=== PATIENT | female | born 1975 | race Caucasian/White ===

== ENCOUNTER 2016-03-25 16:54 | Emergency (ER) | payer MEDICARE, MEDICAID ==
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
--- NOTE | 2016-03-28 10:44 | RADIOLOGY REPORT ---
Four views of the right foot demonstrate no displaced fracture, dislocation or bony destructive change. Dorsal soft tissue swelling is seen. The visualized joints appear unremarkable. IMPRESSION: Soft tissue swelling. No displaced injury is identified. If clinically indicated, further evaluation and/or follow-up may be of benefit. [facility]
== END 2016-03-25 17:30 | disposition home or self-care (01) ==
LOC: ER 16:54
DX: S93.601A Unspecified sprain of right foot, initial encounter (principal); W01.0XXA Fall on same level from slipping, tripping and stumbling without subsequent striking against object, initial encounter; Y92.012 Bathroom of single-family (private) house as the place of occurrence of the external cause; Y93.E1 Activity, personal bathing and showering; G90.521 Complex regional pain syndrome I of right lower limb; G89.4 Chronic pain syndrome; S34.3XXS Injury of cauda equina, sequela; Z89.512 Acquired absence of left leg below knee; Z86.718 Personal history of other venous thrombosis and embolism; F17.210 Nicotine dependence, cigarettes, uncomplicated; Z79.899 Other long term (current) drug therapy
CPT/HCPCS: 73630; 99283

== ENCOUNTER 2016-03-30 17:01 | Emergency (ER) | payer MEDICARE, MEDICAID ==
[2016-03-30] MEDS ORDERED: HYDROmorphone HCL 1 MG/ML SYR ONE (17:48)
[2016-03-30] MEDS ORDERED: ONDANSETRON ODT 8 MG TAB.RAPDIS PO ONE (17:48)
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
== END 2016-03-30 18:20 | disposition home or self-care (01) ==
LOC: ER 17:01
DX: G90.521 Complex regional pain syndrome I of right lower limb (principal); G89.4 Chronic pain syndrome; S34.3XXS Injury of cauda equina, sequela; Z89.512 Acquired absence of left leg below knee; Z86.718 Personal history of other venous thrombosis and embolism; F17.210 Nicotine dependence, cigarettes, uncomplicated; F41.9 Anxiety disorder, unspecified; Z79.899 Other long term (current) drug therapy
CPT/HCPCS: 96372; 99282; 99283; J1170

== ENCOUNTER 2016-04-01 20:08 | Emergency (ER) | payer MEDICARE, MEDICAID ==
[2016-04-01] MEDS ORDERED: HYDROmorphone HCL 1 MG/ML SYR ONE ×2 (20:32→20:33)
[2016-04-01] MEDS ORDERED: HYDROcodone/APAP PREPAC 5/325 1 TAB TABLET PO ONE (20:46)
--- NOTE | 2016-04-01 20:55 | ER NURSING DOCUMENTATION ---
Nurse's Notes [facility] Name:Amy Min Age:41 yrs Sex:Female :1975 Arrival Date:04/01/2016 Time:20:08 Bed3 Private MD:Christine Manley Diagnosis:Reflex Sympathetic Dystrophy, Unspecified Presentation: 04/01 20:14 Presenting complaint: Patient states: Pt states she has nerve pain from BKA right leg ma Pain sever over past e days. Transition of care: Home. 20:14 Acuity: ABIGAIL 3 ma 20:14 Method Of Arrival: Private Vehicle ma Historical: - Allergies: SULFA (SULFONAMIDES); extended release analgesics; KETAMINE; Oxycodone HCl; Carbamazepine; Positive latex allergy; Denies latex allergy; Aspirin; Codeine; Demerol; Ibuprofen; IODINEIODINE CONTAINING; Keflex; SULFA (SULFONAMIDES); - Home Meds: 1. Lyrica Oral 2. gabapentin oral 3 times per day 3. Ibuprofen Oral 4. Ibuprofen Oral - PMHx: Peripheral Neuropathy - / Pain (January 01, 2016); Left BKA leg amputation; Peripheral Neuropathy - / Pain (January 01, 2016); Left BKA leg amputation; Reflex Sympathetic Dystrophy, Unspecified (March 30, 2016); - PSHx: CHOLECYSECTOMY; EAR TUBES; - Tetanus: unknown. - Ebola Screening: : No symptoms or risks identified at this time. . - Immunization history: Unable to Obtain. - Social history: Smoking status: Patient uses tobacco products and is smoker, current status unknown. ED Course: 20:09 Patient arrived in ED. em2 20:09 Christine Manley is Private Physician. em2 20:14 Carmen Arteaga, SUSAN is Primary Nurse. ma 20:16 Triage completed. ma 20:36 Kody Saldaña MD is Attending Physician. tl1 20:36 Christine Manley is Referral Physician. tl1 Administered Medications: 20:30 Drug: Dilaudid 2 mg; Route: IM; Site: left gluteus; ma 20:37 Follow up: Response: Pain is decreased ma 20:54 Drug: HYDROcodone-acetaminophen (5mg/325 mg) 1-2 tabs 1 tabs; Route: PO; ma 20:54 Follow up: Response: Pharmacy closed - take home med pack ma Outcome: 20:43 Discharge ordered by . tl1 20:54 Patient left the ED. ma Signatures: Carmen Arteaga, RN RN yogi Siddiqi-omayra, Carlos em2 Kody Saldaña MD MD tl1
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
== END 2016-04-01 20:55 | disposition home or self-care (01) ==
LOC: ER 20:08
DX: G90.521 Complex regional pain syndrome I of right lower limb (principal); G89.4 Chronic pain syndrome; S34.3XXS Injury of cauda equina, sequela; Z89.512 Acquired absence of left leg below knee; Z86.718 Personal history of other venous thrombosis and embolism; F17.210 Nicotine dependence, cigarettes, uncomplicated; Z79.899 Other long term (current) drug therapy
CPT/HCPCS: 96372; 99282; J1170

== ENCOUNTER 2016-04-06 18:06 | Emergency (ER) | payer MEDICARE, MEDICAID ==
[2016-04-06] MEDS ORDERED: FENTANYL 250 MCG/5 ML VIAL ONE (18:24)
[2016-04-06] MEDS ORDERED: HYDROmorphone HCL 1 MG/ML SYR ONE (18:27)
--- NOTE | 2016-04-06 19:35 | ER PHYSICIAN DOCUMENTATION ---
Physician Documentation [facility] Name:Amy Min Age:41 yrs Sex:Female :1975 Arrival Date:04/06/2016 Time:18:06 Bed6 Private MD:[facility] ED PhysicianJan Conteh Disposition: 04/06/16 18:54 Discharged to Home/Self Care. Impression: Shoulder Contusion, Ankle Contusion. - Condition is Fair. - Discharge Instructions: CONTUSION, Lower Extremity, SHOULDER CONTUSION. - Prescriptions for Hydrocodone- Acetaminophen 5-325 mg Oral Tablet - take 1 tablet by ORAL route every 6 hours As needed; 20 tablet. - Medical Reconciliation form form. - Follow up: Private Physician; When: 7 - 10 days; Reason: Recheck today's complaints, Continuance of care. - Problem is new. - Symptoms have improved. - Notes: Use your boot and shoulder immobilizer for 3 - 4 days, then use passive range of motion exercises to stay limber. Take Ibuprofen 600mg by mouth every 6 hours with food for 3 days. Take Vicodin 1 tab by mouth every 6 hours as needed for severe pain Ice packs for 2 - 3 days. HPI: 04/06 18:15 This 41 yrs old Female presents to ER via EMS with complaints of Fall Injury. cd 18:15 Details of fall: The patient fell from seated position, out of a wheelchair, reports cd she was going too fast, fell out and hit her left shoulder and right ankle. No severe head, neck, chest, back or pelvis injuries. Onset: The symptom(s)/episode began/occurred acutely, just prior to arrival. Associated injuries: The patient sustained anterior aspect of left shoulder, contusion, right ankle, contusion. Associated signs and symptoms: The patient has no apparent associated signs or symptoms, Loss of consciousness: the patient experienced no loss of consciousness. Severity of symptoms: At their worst the symptoms were moderate, in the emergency department the symptoms are unchanged. Historical: - Allergies: SULFA (SULFONAMIDES); KETAMINE; Oxycodone HCl; Carbamazepine; Aspirin; Codeine; Demerol; Ibuprofen; extended release analgesics; IODINEIODINE CONTAINING; SULFA (SULFONAMIDES); Keflex; - Home Meds: 1. Lyrica Oral 2. gabapentin oral 3 times per day 3. Ibuprofen Oral - PMHx: Peripheral Neuropathy - / Pain (January 01, 2016); Reflex Sympathetic Dystrophy, Unspecified (April 01, 2016); Peripheral Neuropathy - / Pain (January 01, 2016); - PSHx: EAR TUBES; CHOLECYSECTOMY; BKA; - Tetanus: < 10 years. - Ebola Screening: : Patient denies exposure to infectious person. Patient denies travel to an Ebola-affected area in the 21 days before illness onset. . - Immunization history: Flu Vaccine unknown. - Social history: Smoking status: Patient states former smoker of tobacco. ROS: 18:15 Neck: Negative for injury, pain, stiffness and swelling. cd Cardiovascular: Negative for chest pain, palpitations, edema and pleuritic pain. Respiratory: Negative for shortness of breath, dyspnea on exertion, cough, sputum production, wheezing, hemoptysis and pleuritic chest pain. Abdomen/GI: Negative for abdominal pain, nausea, vomiting, diarrhea, constipation, distension, melena, hematochezia and hematemesis. 18:15 Back: Negative for injury, pain or muscle spasms. cd 18:15 Constitutional: Negative for poor PO intake. 18:15 MS/extremity: Positive for contusion, decreased range of motion, pain, of the right ankle and anterior aspect of left shoulder, Negative for deformity, paresthesias, tingling. 18:15 Neuro: Negative for acute changes. 18:15 All other systems are negative. Exam: Head/Face: Normocephalic, atraumatic. Neck: Trachea midline, no thyromegaly or masses palpated, and no cervical lymphadenopathy. Supple, full range of motion without nuchal rigidity, or vertebral point tenderness. No Meningismus. Chest/axilla: Normal chest wall appearance and motion. Nontender with no deformity. No lesions are appreciated. Cardiovascular: Regular rate and rhythm with a normal S1 and S2. No gallops, murmurs, or rubs. Normal PMI, no JVD. No pulse deficits. Respiratory: Lungs have equal breath sounds bilaterally, clear to auscultation and percussion. No rales, rhonchi or wheezes noted. No increased work of breathing, no retractions or nasal flaring. Abdomen/GI: Soft, non-tender, with normal bowel sounds. No distension or tympany. No guarding or rebound. No evidence of tenderness throughout. Back: No spinal tenderness. No costovertebral tenderness. Full range of motion. 18:15 Skin: Warm, dry with normal turgor. Normal color with no rashes, no lesions, and no cd evidence of cellulitis. 18:15 Constitutional: The patient appears alert, awake, non-diaphoretic, well developed, well nourished, anxious, obese, in obvious distress, moderately distressed. 18:15 Musculoskeletal/extremity: Extremities: grossly normal except: noted in the anterior aspect of left shoulder: contusion, decreased ROM, pain, noted in the right ankle: contusion, pain, Circulation is intact in all extremities. 18:15 Neuro: Orientation: is normal, to person, place & time. Mentation: is normal, Memory: is normal, Cranial nerves: CN II- XII are normal as tested, Motor: is normal, Sensation: is normal. Vital Signs: 18:18 BP 168 / 142; Pulse 93; Resp 22; Temp 97.8; Pulse Ox 93% on R/A; Pain 10/10; st 19:04 BP 115 / 77; Pulse 82; Resp 15; Pulse Ox 91% on R/A; Pain 6/10; lb 19:34 BP 122 / 77; Pulse 82; Resp 15; Pulse Ox 90% on R/A; Pain 5/10; lb [place] Coma Score: 18:15 Eye Response: spontaneous(4). Verbal Response: oriented(5). Motor Response: obeys cd commands(6). Total: 15. MDM: 18:14 Patient medically screened. cd 18:15 Differential diagnosis: contusion, fracture. cd 18:48 Test interpretation: by ED physician or midlevel provider: plain radiologic studies, cd Shoulder neg for fx and right ankle X-rays negative for fracture. 18:50 Data reviewed: vital signs, nurses notes, old medical records, radiologic studies, and cd as a result, I will discharge patient, prescribe pain medication, Dilaudid. Data interpreted: Pulse oximetry: on room air is 90 %. Interpretation: normal. Counseling: I had a detailed discussion with the patient and/or guardian regarding: the historical points, exam findings, and any diagnostic results supporting the discharge/admit diagnosis, radiology results, the need for outpatient follow up, for a recheck, with the patient's primary care provider, to return to the emergency department if symptoms worsen or persist or if there are any questions or concerns that arise at home. Response to treatment: the patient's symptoms have markedly improved after treatment, the patient's condition has returned to base line, and as a result, I will discharge patient. 04/06 18:14 Order name: Ice Packs; Complete Time: 18:14 st 04/06 18:53 Order name: ORTHO: Arm Sling; Complete Time: 19:03 cd 04/06 18:53 Order name: Walking Boot; Complete Time: 19:35 cd Dispensed Medications: 18:22 Drug: Dilaudid 3 mg; Route: IM; Site: left gluteus; tg 19:03 Follow up: Response: Pain is decreased lb Signatures: Topher Cárdenas RN RN tg Rosa Moore RN RN st Daley, Chris, MD MD cd Bollock, Lynda lb
--- NOTE | 2016-04-06 19:35 | ER NURSING DOCUMENTATION ---
Nurse's Notes [facility] Name:Amy Min Age:41 yrs Sex:Female :1975 Arrival Date:04/06/2016 Time:18:06 Bed6 Private MD:Kevin, [facility] Diagnosis:Shoulder Contusion;Ankle Contusion Presentation: 04/06 18:12 Presenting complaint: Patient states: Fell from wheelchair, pain in left shoulder. tg Transition of care: patient was not received from another setting of care. Care prior to arrival: Splinting by EMS, 100mcg intranasal fentanyl. No IV attempt due to known hard stick. Mechanism of Injury: Fall out of chair. 18:12 Acuity: ABIGAIL 3 tg 18:12 Method Of Arrival: EMS: 410 tg Triage Assessment: 18:15 General: Appears uncomfortable, Behavior is cooperative, crying. Pain: Complains of st pain in posterior aspect of left shoulder and right ankle Pain currently is 10 out of 10 on a pain scale. Pain began post fall. Cardiovascular: No deficits noted. Respiratory: No deficits noted. GI: No deficits noted. Musculoskeletal: Circulation, motion, and sensation intact Tenderness present in posterior aspect of left shoulder and right ankle. Historical: - Allergies: SULFA (SULFONAMIDES); KETAMINE; Oxycodone HCl; Carbamazepine; Aspirin; Codeine; Demerol; Ibuprofen; extended release analgesics; IODINEIODINE CONTAINING; SULFA (SULFONAMIDES); Keflex; - Home Meds: 1. Lyrica Oral 2. gabapentin oral 3 times per day 3. Ibuprofen Oral - PMHx: Peripheral Neuropathy - / Pain (January 01, 2016); Reflex Sympathetic Dystrophy, Unspecified (April 01, 2016); Peripheral Neuropathy - / Pain (January 01, 2016); - PSHx: EAR TUBES; CHOLECYSECTOMY; BKA; - Tetanus: < 10 years. - Ebola Screening: : Patient denies exposure to infectious person. Patient denies travel to an Ebola-affected area in the 21 days before illness onset. . - Immunization history: Flu Vaccine unknown. - Social history: Smoking status: Patient states former smoker of tobacco. Screenin:19 Abuse screen: pt feels safe at home. Nutritional screening: No deficits noted. st Vital Signs: 18:18 BP 168 / 142; Pulse 93; Resp 22; Temp 97.8; Pulse Ox 93% on R/A; Pain 10/10; st 19:04 BP 115 / 77; Pulse 82; Resp 15; Pulse Ox 91% on R/A; Pain 6/10; lb 19:34 BP 122 / 77; Pulse 82; Resp 15; Pulse Ox 90% on R/A; Pain 5/10; lb [place] Coma Score: 18:15 Eye Response: spontaneous(4). Verbal Response: oriented(5). Motor Response: obeys cd commands(6). Total: 15. ED Course: 18:07 Patient arrived in ED. ama 18:07 [facility] is Private Physician. ama 18:07 [facility] is Private Physician. ama 18:11 Topher Cárdenas RN is Primary Nurse. tg 18:13 Triage completed. tg 18:14 Jan Conteh MD is Attending Physician. cd 18:19 Valuables Remains with patient Bed in low position. Side rails up X2. Ice pack to st injury. 18:23 Arm band placed on Bed in low position Call Light in Reach HOB Elevated Side rails up tg x2. 18:23 Affected limb iced. tg 18:45 Port Xray Completed. pm1 18:47 Report given to SUSAN Burgess. tg 19:33 Shoulder immobilizer applied on left shoulder, Ortho shoe/post op shoe applied to right lb foot. Administered Medications: 18:22 Drug: Dilaudid 3 mg; Route: IM; Site: left gluteus; tg 19:03 Follow up: Response: Pain is decreased lb Outcome: 18:54 Discharge ordered by MD. cd 19:34 Discharged to home via wheelchair. lb 19:34 Condition: stable 19:34 Discharge Assessment: Patient awake, alert and oriented x 3. No cognitive and/or functional deficits noted. Patient verbalized understanding of disposition instructions. 19:34 Instructed on discharge instructions, follow up and referral plans. no drinking with medication, Ortho Care 19:34 Patient left the ED. lb Signatures: Topher Cárdenas RN RN tg Twombly, Summer, RN RN st Daley, Chris, MD MD cd Gautam Sutton pm1 Thony Romano, Reg Reg Jenifer Boles lb
== END 2016-04-06 19:35 | disposition home or self-care (01) ==
LOC: ER 18:06
DX: S40.012A Contusion of left shoulder, initial encounter (principal); S90.01XA Contusion of right ankle, initial encounter; V00.811A Fall from moving wheelchair (powered), initial encounter; Y92.010 Kitchen of single-family (private) house as the place of occurrence of the external cause; G90.521 Complex regional pain syndrome I of right lower limb; G89.4 Chronic pain syndrome; S34.3XXS Injury of cauda equina, sequela; Z89.512 Acquired absence of left leg below knee; Z86.718 Personal history of other venous thrombosis and embolism; F17.210 Nicotine dependence, cigarettes, uncomplicated; Z79.899 Other long term (current) drug therapy; Z74.3 Need for continuous supervision
CPT/HCPCS: 96372; 99283; 99284; A0425; A0427; J1170

== ENCOUNTER 2016-04-30 18:36 | Emergency (ER) | payer MEDICARE, MEDICAID ==
[2016-04-30] MEDS ORDERED: KETOROLAC TROMETHAMINE 60 MG/2 ML VIAL ONE (19:31)
[2016-04-30] MEDS ORDERED: HYDROmorphone HCL 1 MG/ML SYR ONE (19:31)
--- NOTE | 2016-04-30 19:42 | ER PHYSICIAN DOCUMENTATION ---
Physician Documentation [facility] Name:Amy Min Age:41 yrs Sex:Female :1975 Arrival Date:04/30/2016 Time:18:36 Bed1 Private MD:Alisha [facility] ED Jan Mcintosh Disposition: 04/30/16 19:17 Discharged to Home/Self Care. Impression: Reflex Sympathetic Dystrophy, Unspecified. - Condition is Fair. - Discharge Instructions: Crushing Pain - CHRONIC PAIN, Nerve Disease, Peripheral - NEUROPATHY, Peripheral. - Medical Reconciliation form form. - Follow up: Private Physician; When: 7 - 10 days; Reason: Recheck today's complaints, Continuance of care. - Problem is an acute exacerbation. - Symptoms are unchanged. HPI: 04/30 19:00 This 41 yrs old Female presents to ER via Private Vehicle with complaints of cd Right leg RSD Neuropathic pain. 19:00 The patient presents with pain, that is acute. The complaints affect the lateral aspect cd of right calf, right ankle and lateral aspect of right foot. Context: The problem was sustained at home, resulted from an unknown cause, the patient can partially bear weight. Onset: The symptom(s)/episode began/occurred acutely, today. Associated signs and symptoms: The patient has no apparent associated signs or symptoms. Severity of symptoms: At their worst the symptoms were severe, in the emergency department the symptoms are unchanged. Historical: - Allergies: SULFA (SULFONAMIDES); Ketamine; Oxycodone HCl; Carbamazepine; Aspirin; Codeine; Demerol; Ibuprofen; extended release analgesics; IODINEIODINE CONTAINING; SULFA (SULFONAMIDES); Keflex; - Home Meds: 1. Lyrica Oral 2. gabapentin oral 3 times per day 3. Ibuprofen Oral - PMHx: Peripheral Neuropathy - / Pain (January 01, 2016); Reflex Sympathetic Dystrophy, Unspecified (April 01, 2016); Shoulder Contusion (April 06, 2016); Ankle Contusion (April 06, 2016); - PSHx: EAR TUBES; CHOLECYSECTOMY; BKA; - Tetanus: unknown. - Ebola Screening: : No symptoms or risks identified at this time. . - Immunization history: Flu Vaccine unknown. - Social history: Smoking status: Patient uses tobacco products, current every day smoker. ROS: 19:00 MS/extremity: Positive for pain, Negative for paresthesias, tingling. cd 19:00 All other systems are negative. Exam: 19:00 Back: No spinal tenderness. No costovertebral tenderness. Full range of motion. cd Skin: Warm, dry with normal turgor. Normal color with no rashes, no lesions, and no evidence of cellulitis. 19:00 Neuro: Awake and alert, GCS 15, oriented to person, place, time, and situation. cd Cranial nerves II-XII grossly intact. Motor strength 5/5 in all extremities. Sensory grossly intact. Cerebellar exam normal. Normal gait. 19:00 Constitutional: The patient appears alert, awake, non-diaphoretic, non-toxic, anxious, in obvious distress, moderately distressed. 19:00 Musculoskeletal/extremity: Extremities: all appear grossly normal, with no appreciated pain with palpation, grossly normal except: noted in the right leg: pain, ROM: Circulation is intact in all extremities. Sensation intact. Vital Signs: 18:47 BP 148 / 92; Pulse 98; Resp 18; Temp 98.5; Pulse Ox 95% on R/A; Weight 69.4 kg; Height ma 5 ft. 5 in. (165.10 cm); Pain 8/10; 18:47 Body Mass Index 25.46 (69.40 kg, 165.10 cm) ma MDM: 19:15 Patient medically screened. cd 19:15 Data reviewed: vital signs, nurses notes, old medical records, and as a result, I will cd discharge patient, prescribe pain medication, Dilaudid, Toradol. Data interpreted: Pulse oximetry: on room air is 95 %. Interpretation: normal. Response to treatment: the patient's symptoms have markedly improved after treatment, and as a result, I will discharge patient. Dispensed Medications: 19:28 Drug: Toradol 60 mg; Route: IM; Site: left gluteus; ma 19:42 Follow up: Response: Pain is decreased ma 19:29 Drug: Phenergan 25 mg; Route: IM; Site: right gluteus; ma 19:42 Follow up: Response: Nausea is decreased ma 19:29 Drug: Dilaudid 3 mg; Route: IM; Site: left gluteus; ma 19:42 Follow up: Response: Pain is decreased ma Signatures: Abuso, Carmen, RN RN ma Conteh, Jan, MD MD cd
--- NOTE | 2016-04-30 19:42 | ER NURSING DOCUMENTATION ---
Nurse's Notes [facility] Name:Amy Min Age:41 yrs Sex:Female :1975 Arrival Date:04/30/2016 Time:18:36 Bed1 Private MD:Alisha [facility] Diagnosis:Reflex Sympathetic Dystrophy, Unspecified Presentation: 04/30 18:42 Presenting complaint: Patient states: Pt with usual leg pain s/p BKA States also has ma left shoulder pain from old injury, currently under care of otrho for same States resulted from extended use of wheelchair. Transition of care: Home. 18:42 Acuity: ABIGAIL 4 ma 18:42 Method Of Arrival: Private Vehicle ma Triage Assessment: 18:45 General: Appears in no apparent distress, Behavior is cooperative. Pain: Complains of ma pain in anterior aspect of right shoulder. Pain: Complains of pain in lateral aspect of left knee, lateral aspect of left calf, left lateral ankle and lateral aspect of left foot. Historical: - Allergies: SULFA (SULFONAMIDES); Ketamine; Oxycodone HCl; Carbamazepine; Aspirin; Codeine; Demerol; Ibuprofen; extended release analgesics; IODINEIODINE CONTAINING; SULFA (SULFONAMIDES); Keflex; - Home Meds: 1. Lyrica Oral 2. gabapentin oral 3 times per day 3. Ibuprofen Oral - PMHx: Peripheral Neuropathy - / Pain (January 01, 2016); Reflex Sympathetic Dystrophy, Unspecified (April 01, 2016); Shoulder Contusion (April 06, 2016); Ankle Contusion (April 06, 2016); - PSHx: EAR TUBES; CHOLECYSECTOMY; BKA; - Tetanus: unknown. - Ebola Screening: : No symptoms or risks identified at this time. . - Immunization history: Flu Vaccine unknown. - Social history: Smoking status: Patient uses tobacco products, current every day smoker. Screenin:48 Infectious Disease Risk None. Abuse screen: Denies threats or abuse. Nutritional ma screening: No deficits noted. Assessment: 19:40 Reassessment: Patient states feeling better. Patient states symptoms have improved. ma Patient appears in no apparent distress at this time. Vital Signs: 18:47 BP 148 / 92; Pulse 98; Resp 18; Temp 98.5; Pulse Ox 95% on R/A; Weight 69.4 kg; Height ma 5 ft. 5 in. (165.10 cm); Pain 8/10; 18:47 Body Mass Index 25.46 (69.40 kg, 165.10 cm) ma ED Course: 18:38 Patient arrived in ED. ama 18:38 [facility] Private [facility]. ama 18:42 Carmen Arteaga, SUSAN is Primary Nurse. ma 18:44 Triage completed. ma 18:48 Valuables Remains with patient Patient has correct armband on for positive ma identification. Call light in reach. 19:15 Jan Conteh MD is Attending Physician. cd Administered Medications: 19:28 Drug: Toradol 60 mg; Route: IM; Site: left gluteus; ma 19:42 Follow up: Response: Pain is decreased ma 19:29 Drug: Phenergan 25 mg; Route: IM; Site: right gluteus; ma 19:42 Follow up: Response: Nausea is decreased ma 19:29 Drug: Dilaudid 3 mg; Route: IM; Site: left gluteus; ma 19:42 Follow up: Response: Pain is decreased ma Outcome: 19:17 Discharge ordered by . jemal 19:40 Discharged to home ma 19:40 Condition: stable 19:40 Discharge instructions given to patient, Instructed on discharge instructions, follow up and referral plans. Demonstrated understanding of instructions. 19:42 Patient left the ED. ma 05/01 10:33 Discharge F/U Call: Unable to reach: no answer ma Signatures: Carmen Arteaga, Jan Warner RN, ma, MD MD cd Averdick, Andrew, Reg Reg ama
== END 2016-04-30 19:42 | disposition home or self-care (01) ==
LOC: ER 18:36
DX: G90.521 Complex regional pain syndrome I of right lower limb (principal); G89.4 Chronic pain syndrome; S34.3XXS Injury of cauda equina, sequela; Z89.512 Acquired absence of left leg below knee; Z86.718 Personal history of other venous thrombosis and embolism; F17.210 Nicotine dependence, cigarettes, uncomplicated; Z79.899 Other long term (current) drug therapy
CPT/HCPCS: 96372; 99283; J1170; J1885; J2550

== ENCOUNTER 2016-05-06 14:28 | Emergency (ER) | payer MEDICARE, MEDICAID ==
[2016-05-06] MEDS ORDERED: KETOROLAC TROMETHAMINE 30 MG/ML VIAL ONE (15:17)
[2016-05-06] MEDS ORDERED: HYDROmorphone HCL 1 MG/ML SYR ONE (15:17)
--- NOTE | 2016-05-06 15:44 | ER PHYSICIAN DOCUMENTATION ---
Physician Documentation [facility] Name:Amy Min Age:41 yrs Sex:Female :1975 Arrival Date:05/06/2016 Time:14:28 Bed4 Private MD:Christine Manley ED, Tom Disposition: 05/08 09:42 Chart complete. tl1 Disposition: 05/06/16 15:24 Discharged to Home/Self Care. Impression: Reflex Sympathetic Dystrophy, Unspecified. - Condition is Good. - Medical Reconciliation form form. - Follow up: Christine Manley; When: 2 - 3 days; Reason: Recheck today's complaints, Continuance of care. - Problem is an ongoing problem. - Symptoms have improved. - Notes: KEEP YOUR APPOINTMENT WITH DR BARCENAS ON May, SCHEDULED, FOR MOVING AHEAD WITH YOUR IMPLANTABLE NERVE STIMULATOR. HPI: 05/06 14:33 This 41 yrs old Female presents to ER via Wheelchair with complaints of Leg tl1 Pain. 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 She says she has an appointment tl1 on 05/19 to prepare get a nerve stimulator, but today she is having another flare of pain. She says she sees sriram manley at [facility] and that she takes no opioids chronically for her pain. There is nothing unusual about tthis particular episode. Typically, for these episodes, she comes to the ED for a shot of dilaudid and toradol which seems to take the edge off.. Historical: - Allergies: SULFA (SULFONAMIDES); KETAMINE; Oxycodone HCl; Carbamazepine; Aspirin; Codeine; Demerol; Ibuprofen; extended release analgesics; IODINEIODINE CONTAINING; SULFA (SULFONAMIDES); Keflex; - Home Meds: 1. Lyrica Oral 2. gabapentin oral 3 times per day 3. Ibuprofen Oral - PMHx: Shoulder Contusion (April 06, 2016); Ankle Contusion (April 06, 2016); Peripheral Neuropathy - / Pain (January 01, 2016); Reflex Sympathetic Dystrophy, Unspecified (April 01, 2016); Peripheral Neuropathy - / Pain (January 01, 2016); - PSHx: EAR TUBES; CHOLECYSECTOMY; BKA; - Tetanus: Other NA today. - Ebola Screening: : No symptoms or risks identified at this time. . - Immunization history: Flu Vaccine unknown. - Social history: Smoking status: Patient uses tobacco products, current every day smoker. Patient/guardian denies using alcohol, street drugs. ROS: 14:40 MS/extremity: Positive for pain. tl1 Exam: 14:40 Constitutional: The patient appears alert, awake, well developed, well nourished, in tl1 obvious distress, moderately distressed, restless, uncomfortable. 14:40 Cardiovascular: Rate: normal. 14:40 Respiratory: Respirations: normal. 14:40 Musculoskeletal/extremity: Right lower leg looks as it always does, with mildly erythematous shiny atrophic skin and diffuse muscular atrophy. She has diffuse hyperalgesia of the entire lower leg.. Vital Signs: 14:41 BP 125 / 105; Pulse 88; Resp 16; Temp 98.9; Pulse Ox 94% on R/A; Weight 73.94 kg; nf Height 5 ft. 5 in. (165.10 cm); Pain 9/10; 15:36 BP 117 / 87; Pulse 80; Resp 12; Pulse Ox 93% on R/A; Pain 4/10; nf 14:41 Body Mass Index 27.12 (73.94 kg, 165.10 cm) nf MDM: 14:33 Patient medically screened. tl1 15:00 Data reviewed: vital signs, nurses notes, and as a result, I will discharge patient. tl1 Counseling: I had a detailed discussion with the patient and/or guardian regarding: the historical points, exam findings, and any diagnostic results supporting the discharge/admit diagnosis, the need for outpatient follow up, to return to the emergency department if symptoms worsen or persist or if there are any questions or concerns that arise at home. Response to treatment: the patient's symptoms have markedly improved after treatment, and as a result, I will discharge patient. ED course: Encouraged her to keep her May appointment with Dr Esqueda, her pain management physician, in [place], and continue to work towards a pain management regimen that reduces her need for frequent ED visits for parenteral pain medications. I did speak with our ED director, Dr Conteh, who is in agreement that our collective ED policy goal, and plan, should be to help her get her pain controlled to the point that she does not need to come to the ED for this chronic pain.. Dispensed Medications: 15:07 Drug: Phenergan 25 mg; Route: PO; nf 15:38 Follow up: Response: No adverse reaction nf 15:19 Drug: Dilaudid 3 mg; {Note: 2mg given right deltoid, 1mg mixed with toradol and given nf in left deltoid.} Route: IM; Site: right deltoid; 15:38 Follow up: Response: Pain is decreased nf 15:19 Drug: Toradol 30 mg; {Note: given with 1mg dilaudid; pharmacy consulted and ok'd nf compatibility .} Route: IM; Site: left deltoid; 15:38 Follow up: Response: Pain is decreased nf Signatures: Karly Obrien RN RN Kody Nevarez MD MD tl1
--- NOTE | 2016-05-06 15:44 | ER NURSING DOCUMENTATION ---
Nurse's Notes [facility] Name:Amy Min Age:41 yrs Sex:Female :1975 Arrival Date:05/06/2016 Time:14:28 Bed4 Private MD:Christine Manley Diagnosis:Reflex Sympathetic Dystrophy, Unspecified Presentation: 05/06 14:31 Transition of care: patient was not received from another setting of care. Notified ED nf Physician of patient's arrival and CC Dr. Saldaña notified. 14:31 Acuity: ABIGAIL 4 nf 14:31 Method Of Arrival: Wheelchair nf 14:39 Presenting complaint: Patient states: exacerbation of right leg pain, chronic pain nf patient, states she took ibuprofen at 1100. Triage Assessment: 14:40 General: Appears well nourished, well groomed, Behavior is appropriate for age. Pain: nf Complains of pain in right leg hypersenditivity chronic - "but now it is shooting up to my hip" Pain began began today. Musculoskeletal:. Historical: - Allergies: SULFA (SULFONAMIDES); KETAMINE; Oxycodone HCl; Carbamazepine; Aspirin; Codeine; Demerol; Ibuprofen; extended release analgesics; IODINEIODINE CONTAINING; SULFA (SULFONAMIDES); Keflex; - Home Meds: 1. Lyrica Oral 2. gabapentin oral 3 times per day 3. Ibuprofen Oral - PMHx: Shoulder Contusion (April 06, 2016); Ankle Contusion (April 06, 2016); Peripheral Neuropathy - / Pain (January 01, 2016); Reflex Sympathetic Dystrophy, Unspecified (April 01, 2016); Peripheral Neuropathy - / Pain (January 01, 2016); - PSHx: EAR TUBES; CHOLECYSECTOMY; BKA; - Tetanus: Other NA today. - Ebola Screening: : No symptoms or risks identified at this time. . - Immunization history: Flu Vaccine unknown. - Social history: Smoking status: Patient uses tobacco products, current every day smoker. Patient/guardian denies using alcohol, street drugs. Screenin:40 Infectious Disease Risk None. Abuse screen: Denies threats or abuse. Nutritional nf screening: No deficits noted. Assessment: 14:40 See Triage Assessment done by same RN. nf Vital Signs: 14:41 BP 125 / 105; Pulse 88; Resp 16; Temp 98.9; Pulse Ox 94% on R/A; Weight 73.94 kg; nf Height 5 ft. 5 in. (165.10 cm); Pain 9/10; 15:36 BP 117 / 87; Pulse 80; Resp 12; Pulse Ox 93% on R/A; Pain 4/10; nf 14:41 Body Mass Index 27.12 (73.94 kg, 165.10 cm) nf ED Course: 14:29 Patient arrived in ED. arc 14:30 Christine Manley is Private Physician. arc 14:31 Karly Obrien RN is Primary Nurse. nf 14:31 Triage completed. nf 14:33 Kody Saldaña MD is Attending Physician. 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 nf Family accompanied patient. 14:40 Valuables Remains with patient. Door closed. Noise minimized. Lights dimmed. Moved to private room. 15:23 Christine Manley is Referral Physician. tl1 Administered Medications: 15:07 Drug: Phenergan 25 mg; Route: PO; nf 15:38 Follow up: Response: No adverse reaction nf 15:19 Drug: Dilaudid 3 mg; {Note: 2mg given right deltoid, 1mg mixed with toradol and given nf in left deltoid.} Route: IM; Site: right deltoid; 15:38 Follow up: Response: Pain is decreased nf 15:19 Drug: Toradol 30 mg; {Note: given with 1mg dilaudid; pharmacy consulted and ok'd nf compatibility .} Route: IM; Site: left deltoid; 15:38 Follow up: Response: Pain is decreased nf Outcome: 15:24 Discharge ordered by . tl1 15:36 Discharged to home via wheelchair, with family. nf 15:36 Condition: improved 15:36 Discharge Assessment: Patient awake, alert and oriented x 3. No cognitive and/or functional deficits noted. Patient verbalized understanding of disposition instructions. 15:36 Discharge instructions given to patient, Instructed on discharge instructions, follow up and referral plans. medication usage, no drinking with medication, no driving heavy equipment, Demonstrated understanding of instructions, medications. 15:43 Patient left the ED. nf Signatures: Karly Obrien RN RN nf Kody Saldaña MD MD tl1 Milagros Manley, Reg Reg arc
== END 2016-05-06 15:44 | disposition home or self-care (01) ==
LOC: ER 14:28
DX: G90.521 Complex regional pain syndrome I of right lower limb (principal); G89.4 Chronic pain syndrome; S34.3XXS Injury of cauda equina, sequela; Z89.512 Acquired absence of left leg below knee; Z86.718 Personal history of other venous thrombosis and embolism; F17.210 Nicotine dependence, cigarettes, uncomplicated; Z79.899 Other long term (current) drug therapy
CPT/HCPCS: 96372; 99282; 99283; J1170; J1885; Q0169

== ENCOUNTER 2016-06-05 16:36 | Emergency (ER) | payer MEDICARE, MEDICAID ==
[2016-06-05] MEDS ORDERED: HYDROmorphone HCL 1 MG/ML SYR ONE (17:44)
[2016-06-05] MEDS ORDERED: KETOROLAC TROMETHAMINE 60 MG/2 ML VIAL ONE (17:45)
--- NOTE | 2016-06-05 17:55 | ER PHYSICIAN DOCUMENTATION ---
Physician Documentation [facility] Name:Amy Min Age:41 yrs Sex:Female :1975 Arrival Date:06/05/2016 Time:16:36 Bed1 Private MD:Christine Manley ED, John Disposition: 06/05/16 17:49 Discharged to Home/Self Care. Impression: Reflex Sympathetic Dystrophy, Unspecified. - Condition is Good. - Discharge Instructions: CHRONIC PAIN. - Medical Reconciliation form form. - Follow up: Abdiel Esqueda DO; When: 2 - 3 days; Reason: Continuance of care. - Problem is new. - Symptoms have improved. HPI: 06/05 18:24 This 41 yrs old Female presents to ER via Wheelchair with complaints of Pain jm In Limb - RIGHT. 18:24 The patient presents with pain, that is chronic. The patient has experienced similar jm episodes in the past. Historical: - Allergies: SULFA (SULFONAMIDES); KETAMINE; Oxycodone HCl; CARBAMAZEPINE DERIVATIVES; Aspirin; Codeine; Demerol; Ibuprofen; extended release analgesics; IODINEIODINE CONTAINING; SULFA (SULFONAMIDES); Keflex; - Home Meds: 1. Lyrica Oral 2. gabapentin oral 3 times per day 3. Ibuprofen Oral 4. fentanyl 25 mcg/hr transdermal pt72 1 patch every 72 hours 5. oxycodone as needed every 8 hours - PMHx: Shoulder Contusion (April 06, 2016); Ankle Contusion (April 06, 2016); Peripheral Neuropathy - / Pain (January 01, 2016); Reflex Sympathetic Dystrophy, Unspecified (April 01, 2016); Peripheral Neuropathy - / Pain (January 01, 2016); Reflex Sympathetic Dystrophy, Unspecified (May 06, 2016); - PSHx: EAR TUBES; CHOLECYSECTOMY; BKA; - Tetanus: < 10 years. - Ebola Screening: : No symptoms or risks identified at this time. . - Immunization history: Flu Vaccine < 1 year. - Social history: Smoking status: Patient uses tobacco products, current every day smoker. ROS: 18:24 MS/extremity: Positive for pain. jm 18:24 All other systems are negative. Exam: 18:24 Constitutional: The patient appears alert, awake. jm 18:24 Cardiovascular: Rate: normal. 18:24 Musculoskeletal/extremity: 18:24 Psych: Behavior/mood is pleasant, cooperative, anxious, Affect is calm. Vital Signs: 16:45 BP 138 / 88 (auto/); lpr 16:47 Pulse 95; Resp 15; Temp 97.7(O); Pulse Ox 96% ; Weight 72.57 kg (R); Height 5 ft. 6 in. lpr (167.64 cm) (R); Pain 10/10; 17:16 BP 130 / 89 (auto/); lpr 17:17 Pulse Ox 94% ; lpr 17:45 BP 125 / 88; Pulse 85; Pulse Ox 93% on R/A; cb 16:47 Body Mass Index 25.82 (72.57 kg, 167.64 cm) lpr MDM: 16:48 Patient medically screened. 18:26 Differential diagnosis: chronic pain. Data reviewed: vital signs, nurses notes, old medical records, and as a result, I will discharge patient. Physician consultation: Abdiel Esqueda DO regarding patient's condition, would like medications started, dilaudid IM. Dispensed Medications: 17:45 Drug: Phenergan 12.5 mg; Route: IM; Site: right gluteus; cb 19:10 Follow up: Response: Pain is decreased cb 17:45 Drug: Dilaudid 2 mg; Route: IM; Site: right gluteus; cb 19:10 Follow up: Response: Pain is decreased cb 17:48 Drug: Toradol 60 mg; Route: IM; Site: left gluteus; cb 19:10 Follow up: Response: Pain is decreased cb Signatures: Indigo Narayan RN RN cb Meyer, John, MD MD jm Roberts, Leslie, RN RN lpr
--- NOTE | 2016-06-05 17:55 | ER NURSING DOCUMENTATION ---
Nurse's Notes [facility] Name:Amy Min Age:41 yrs Sex:Female :1975 Arrival Date:06/05/2016 Time:16:36 Bed1 Private MD:Christine Manley Diagnosis:Reflex Sympathetic Dystrophy, Unspecified Presentation: 06/05 16:47 Presenting complaint: Patient states: "nerve pain" in right foot and leg. Called her lpr pain management doc who told her to go to the ED and call him if needed. Transition of care: patient was not received from another setting of care. Notified ED Physician of patient's arrival and CC Hugh Ng notified. 16:47 Acuity: ABIGAIL 3 lpr 16:47 Method Of Arrival: Wheelchair lpr Triage Assessment: 16:50 General: Appears uncomfortable, Behavior is cooperative. Pain: Complains of pain in lpr lateral aspect of right calf, right ankle, lateral aspect of right foot, right calf, right Achilles, right heel, medial aspect of right calf, medial aspect of right foot, right hollis, anterior aspect of right ankle and dorsum of right foot. EENT: Oral mucosa is dry. Neuro: Level of Consciousness is awake, alert, obeys commands, Oriented to person, place, time. Cardiovascular: Chest pain is denied. Respiratory: Airway is patent Respiratory effort is even, unlabored, Respiratory pattern is regular, symmetrical. GI: No deficits noted. : No deficits noted. Derm: Skin is intact, is healthy with good turgor, Skin is pink, warm & dry. Musculoskeletal: Reports pain in right lower leg bka left left. Historical: - Allergies: SULFA (SULFONAMIDES); KETAMINE; Oxycodone HCl; CARBAMAZEPINE DERIVATIVES; Aspirin; Codeine; Demerol; Ibuprofen; extended release analgesics; IODINEIODINE CONTAINING; SULFA (SULFONAMIDES); Keflex; - Home Meds: 1. Lyrica Oral 2. gabapentin oral 3 times per day 3. Ibuprofen Oral 4. fentanyl 25 mcg/hr transdermal pt72 1 patch every 72 hours 5. oxycodone as needed every 8 hours - PMHx: Shoulder Contusion (April 06, 2016); Ankle Contusion (April 06, 2016); Peripheral Neuropathy - / Pain (January 01, 2016); Reflex Sympathetic Dystrophy, Unspecified (April 01, 2016); Peripheral Neuropathy - / Pain (January 01, 2016); Reflex Sympathetic Dystrophy, Unspecified (May 06, 2016); - PSHx: EAR TUBES; CHOLECYSECTOMY; BKA; - Tetanus: < 10 years. - Ebola Screening: : No symptoms or risks identified at this time. . - Immunization history: Flu Vaccine < 1 year. - Social history: Smoking status: Patient uses tobacco products, current every day smoker. Screenin:56 Infectious Disease Risk None. Abuse screen: Denies threats or abuse. Nutritional lpr screening: No deficits noted. Assessment: 16:56 See Triage Assessment done by same RN. lpr Vital Signs: 16:45 BP 138 / 88 (auto/); lpr 16:47 Pulse 95; Resp 15; Temp 97.7(O); Pulse Ox 96% ; Weight 72.57 kg (R); Height 5 ft. 6 in. lpr (167.64 cm) (R); Pain 10/10; 17:16 BP 130 / 89 (auto/); lpr 17:17 Pulse Ox 94% ; lpr 17:45 BP 125 / 88; Pulse 85; Pulse Ox 93% on R/A; cb 16:47 Body Mass Index 25.82 (72.57 kg, 167.64 cm) lpr ED Course: 16:38 Patient arrived in ED. jl 16:39 Christine Manley is Private Physician. jl 16:47 Triage completed. lpr 16:48 Edu Reese MD is Attending Physician. jm 16:56 Valuables Remains with patient. Pulse Ox - RN Monitoring Only NIBP On - RN Monitoring lpr Only. 17:30 Report given to Indigo Narayan RN. lpr 17:49 Abdiel Esqueda DO is Referral Physician. kevin Administered Medications: 17:45 Drug: Phenergan 12.5 mg; Route: IM; Site: right gluteus; cb 19:10 Follow up: Response: Pain is decreased cb 17:45 Drug: Dilaudid 2 mg; Route: IM; Site: right gluteus; cb 19:10 Follow up: Response: Pain is decreased cb 17:48 Drug: Toradol 60 mg; Route: IM; Site: left gluteus; cb 19:10 Follow up: Response: Pain is decreased cb Outcome: 17:49 Discharge ordered by . kevin 17:54 Patient left the ED. cb 19:16 Discharged to home ambulatory. cb 19:16 Condition: stable 19:16 Discharge instructions given to patient, Instructed on discharge instructions, Demonstrated understanding of instructions, follow up 06/06 13:22 Discharge F/U Call: Unable to reach: left voicemail: lp 13:27 Discharge F/U Call: Spoke with: patient. Are you having any pain? yes. Pain level is lp 5 / 10 How are you managing your pain? Signatures: Indigo Narayan RN RN cb Pavlish, Lena, RN RN lp Meyer, John, MD MD jm Roberts, Leslie, RN RN lpr Lietz, Jeff jl
== END 2016-06-05 17:54 | disposition home or self-care (01) ==
LOC: ER 16:36
DX: G90.521 Complex regional pain syndrome I of right lower limb (principal); G89.4 Chronic pain syndrome; S34.3XXS Injury of cauda equina, sequela; Z89.512 Acquired absence of left leg below knee; Z86.718 Personal history of other venous thrombosis and embolism; F17.210 Nicotine dependence, cigarettes, uncomplicated; Z79.899 Other long term (current) drug therapy
CPT/HCPCS: 96372; 99282; 99283; J1170; J1885; J2550

== ENCOUNTER 2016-07-09 16:04 | Emergency (ER) | payer MEDICARE, MEDICAID ==
--- NOTE | 2016-07-09 16:21 | ER NURSING DOCUMENTATION ---
Nurse's Notes [facility] Name:mAy Min Age:41 yrs Sex:Female :1975 Arrival Date:07/09/2016 Time:16:04 Bed4 Private MD:Alisha [facility] Diagnosis:Reflex Sympathetic Dystrophy, Unspecified Presentation: 07/09 16:09 Presenting complaint: Patient states: Pain to right foot and leg. Pt. 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 Pain has been increasing all weekend. Transition of care: Home. Notified ED Physician of patient's arrival and CC Dr. Conteh notified. 16:09 Acuity: ABIGAIL 4 ke 16:09 Method Of Arrival: Private Vehicle ke Triage Assessment: 16:17 General: Appears uncomfortable, Behavior is anxious, cooperative, quiet. Pain: ke Complains of pain in right foot Pain currently is 8 out of 10 on a pain scale. EENT: Oral mucosa is moist. Neuro: Level of Consciousness is awake, alert, Oriented to person, place, time, event, Cardiovascular: Capillary refill is brisk Heart tones S1 S2 present. Respiratory: Airway is patent Trachea midline Breath sounds are clear bilaterally. GI: No deficits noted. : No deficits noted. Derm: No deficits noted. Musculoskeletal: Capillary refill is brisk. Historical: - Allergies: Sulfa (Sulfonamide Antibiotics); Levaquin; - Home Meds: 1. Oxycodone HCl Oral 2. Ibuprofen Oral 3. Lyrica Oral - PMHx: Reflex Sympathetic Dystrophy, Unspecified (June 05, 2016); Peripheral Neuropathy - / Pain (January 01, 2016); - PSHx: BKA; CHOLECYSECTOMY; EAR TUBES; - Tetanus: < 10 years. - Ebola Screening: : Patient negative for fever greater than or equal to 101.5 degrees Fahrenheit, and additional compatible Ebola Virus Disease symptoms. Patient denies exposure to infectious person. Patient denies travel to an Ebola-affected area in the 21 days before illness onset. No symptoms or risks identified at this time. . - Immunization history: Pneumococcal vaccine is up to date, Flu Vaccine < 1 year. - Social history: Smoking status: Patient uses tobacco products and is smoker, current status unknown. Screenin:19 Infectious Disease Risk None. Abuse screen: Denies threats or abuse. Denies injuries ke from another. Nutritional screening: No deficits noted. Assessment: 16:19 See Triage Assessment done by same RN. Vital Signs: 16:08 BP 191 / 106 RA Sitting (auto/reg); Pulse 68 RA; Resp 16 S; Temp 98.3(O); Pulse Ox 94% em3 on R/A; Weight 72.57 kg (R); Height 5 ft. 5 in. (165.10 cm) (R); Pain 8/10; 16:08 Body Mass Index 26.63 (72.57 kg, 165.10 cm) em3 [place] Coma Score: 16:15 Eye Response: spontaneous(4). Verbal Response: oriented(5). Motor Response: obeys cd commands(6). Total: 15. ED Course: 16:05 Patient arrived in ED. ds 16:06 [facility] Private [facility]. ds 16:08 Valuables Remains with patient Patient has correct armband on for positive em3 identification. Call light in reach. Patient remains in wheelchair per patient request. 16:09 Debra Ponce RN is Primary Nurse. ke 16:10 Triage completed. ke 16:12 Jan Conteh MD is Attending Physician. cd 16:12 Abdiel Esqueda DO is Referral Physician. cd 16:19 Notified ED Physician of patient's arrival and chief complaint. Dr. Conteh notified. ke Administered Medications: No medications were administered Outcome: 16:13 Discharge ordered by MD. cd 16:19 Discharged to home via wheelchair. ke 16:19 Condition: unchanged 16:19 Discharge instructions given to patient, Instructed on discharge instructions, follow up and referral plans. medication usage. 16:20 Patient left the ED. ke 07/10 09:27 Discharge F/U Call: Spoke with: patient. Are you having any pain? yes. How are you lp managing your pain? Patient is taking medication: Regular home dose of oxycodone Signatures: Annalisa Solares RN RN lp Srot, Marlys, Reg Reg ds Jan Conteh MD MD cd Justineklejohn, Salvador em3 Debra Ponce RN RN ke
--- NOTE | 2016-07-09 16:21 | ER PHYSICIAN DOCUMENTATION ---
Physician Documentation [facility] Name:Amy Min Age:41 yrs Sex:Female :1975 Arrival Date:07/09/2016 Time:16:04 Bed4 Private MD:Alisha [facility] ED Jan Mcintosh Disposition: 07/09/16 16:13 Discharged to Home/Self Care. Impression: Reflex Sympathetic Dystrophy, Unspecified. - Condition is Fair. - Discharge Instructions: Ache - CHRONIC PAIN. - Medical Reconciliation form form. - Follow up: Abdiel Esqueda DO; When: Tomorrow; Reason: Recheck today's complaints, Continuance of care. - Problem is chronic. - Symptoms are unchanged. - Notes: Take Oxycodone 10mg by mouth at 8 - 10 PM tonight for pain. Follow up with Dr. Muniz, Pain Management Physician tomorrow. Drink plenty of fluids. HPI: 07/09 16:05 This 41 yrs old Female presents to ER via Private Vehicle with complaints of cd Pain - RT FOOT. 16:05 The patient presents with pain, that is chronic. The complaints affect the left hollis cd and dorsum of left foot. Onset: The symptom(s)/episode began/occurred gradually, 2 day(s) ago. Associated signs and symptoms: The patient has no apparent associated signs or symptoms. The patient has experienced similar episodes in the past. 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 She is being followed by Pain Specialist, Dr. Phillip. . She reports taking Oxycodone 5 mg PO at 1500 today. She is no longer on a Fentanyl Patch. She is to have a spinal stimulator place fairly soon.. Historical: - Allergies: Sulfa (Sulfonamide Antibiotics); Levaquin; - Home Meds: 1. Oxycodone HCl Oral 2. Ibuprofen Oral 3. Lyrica Oral - PMHx: Reflex Sympathetic Dystrophy, Unspecified (June 05, 2016); Peripheral Neuropathy - / Pain (January 01, 2016); - PSHx: BKA; CHOLECYSECTOMY; EAR TUBES; - Tetanus: < 10 years. - Ebola Screening: : Patient negative for fever greater than or equal to 101.5 degrees Fahrenheit, and additional compatible Ebola Virus Disease symptoms. Patient denies exposure to infectious person. Patient denies travel to an Ebola-affected area in the 21 days before illness onset. No symptoms or risks identified at this time. . - Immunization history: Pneumococcal vaccine is up to date, Flu Vaccine < 1 year. - Social history: Smoking status: Patient uses tobacco products and is smoker, current status unknown. ROS: 16:15 Constitutional: Negative for chills, fever, poor PO intake. cd 16:15 Cardiovascular: Negative for chest pain. 16:15 Respiratory: Negative for shortness of breath. 16:15 Abdomen/GI: Negative for nausea, vomiting. 16:15 MS/extremity: Positive for pain. 16:15 Neuro: Negative for acute changes. 16:15 All other systems are negative. Exam: 16:15 Constitutional: The patient appears alert, awake, non-diaphoretic, well developed, well cd nourished, anxious, obese. 16:15 Musculoskeletal/extremity: Extremities: grossly normal except: noted in the dorsum of left foot and left hollis and right foot: pain, ROM: no acute changes, Circulation is intact in all extremities. 16:15 Neuro: Exam negative for acute changes. Vital Signs: 16:08 BP 191 / 106 RA Sitting (auto/reg); Pulse 68 RA; Resp 16 S; Temp 98.3(O); Pulse Ox 94% em3 on R/A; Weight 72.57 kg (R); Height 5 ft. 5 in. (165.10 cm) (R); Pain 8/10; 16:08 Body Mass Index 26.63 (72.57 kg, 165.10 cm) em3 [place] Coma Score: 16:15 Eye Response: spontaneous(4). Verbal Response: oriented(5). Motor Response: obeys cd commands(6). Total: 15. MDM: 16:12 Patient medically screened. cd 16:15 Data reviewed: vital signs, nurses notes, old medical records, and as a result, I will cd discharge patient. Data interpreted: Pulse oximetry: on room air is 94 %. Interpretation: normal. Counseling: I had a detailed discussion with the patient and/or guardian regarding: the historical points, exam findings, and any diagnostic results supporting the discharge/admit diagnosis, the need for outpatient follow up, for a recheck, for a referral to a specialist, a painter sign maintenance, to return to the emergency department if symptoms worsen or persist or if there are any questions or concerns that arise at home. Special discussion: I discussed with the patient their frequent requests for pain medications. Instructions have been given, that in the best interests of the patient, further pain Rx's must come from the patient's PCP or a painter sign maintenance. Dispensed Medications: No medications were administered Signatures: Jan Conteh MD MD cd Evens, Kerry, RN RN ke
== END 2016-07-09 16:20 | disposition home or self-care (01) ==
LOC: ER 16:04
DX: G90.521 Complex regional pain syndrome I of right lower limb (principal); G89.4 Chronic pain syndrome; S34.3XXS Injury of cauda equina, sequela; Z89.512 Acquired absence of left leg below knee; Z86.718 Personal history of other venous thrombosis and embolism; F17.210 Nicotine dependence, cigarettes, uncomplicated; Z79.899 Other long term (current) drug therapy
CPT/HCPCS: 99281

== ENCOUNTER 2016-07-10 19:28 | Emergency (ER) | payer MEDICARE, MEDICAID ==
[2016-07-10] MEDS ORDERED: ONDANSETRON HCL 4 MG/2 ML VIAL ONE (20:07)
[2016-07-10] MEDS ORDERED: HYDROmorphone HCL 1 MG/ML SYR ONE (20:07)
--- NOTE | 2016-07-10 20:44 | ER NURSING DOCUMENTATION ---
Nurse's Notes [facility] Name:Amy Min Age:41 yrs Sex:Female :1975 Arrival Date:07/10/2016 Time:19:28 Bed1 Private MD:Abdiel Esqueda D Diagnosis:Reflex Sympathetic Dystrophy, Unspecified Presentation: 07/10 19:31 Acuity: ABIGAIL 4 bw2 19:43 Presenting complaint: Patient states: pt states she has continued nerve pain in her bw2 right lower leg. Transition of care: Home. Notified ED Physician of patient's arrival and CC Dr. Conteh notified. 19:43 Method Of Arrival: Wheelchair bw2 Triage Assessment: 19:46 General: Appears in no apparent distress, Behavior is anxious. Pain: Complains of pain bw2 in right lower leg Alleviated by nothing. Historical: - Allergies: Sulfa (Sulfonamide Antibiotics); Levaquin; - Home Meds: 1. Oxycodone HCl Oral 2. Ibuprofen Oral 3. Lyrica Oral - PMHx: Peripheral Neuropathy - / Pain (January 01, 2016); Reflex Sympathetic Dystrophy, Unspecified (July 09, 2016); - PSHx: BKA; CHOLECYSECTOMY; EAR TUBES; - Tetanus: < 10 years. - Ebola Screening: : Patient negative for fever greater than or equal to 101.5 degrees Fahrenheit, and additional compatible Ebola Virus Disease symptoms. Patient denies exposure to infectious person. Patient denies travel to an Ebola-affected area in the 21 days before illness onset. No symptoms or risks identified at this time. . - Social history: Smoking status: Patient uses tobacco products, current every day smoker. Screenin:47 Infectious Disease Risk None. Abuse screen: Denies threats or abuse. Denies injuries bw2 from another. Nutritional screening: No deficits noted. Assessment: 19:47 See Triage Assessment done by same RN. bw2 Vital Signs: 19:42 BP 172 / 68; Pulse 66; Resp 18; Temp 99(O); Pulse Ox 97% on R/A; Weight 73.94 kg; Pain bw2 8/10; 19:42 Height 5 ft. 4 in. (162.56 cm); bw2 20:16 Pulse 62; Resp 16; Pulse Ox 92% on R/A; Pain 6/10; lc 20:41 BP 162 / 60; Pulse 70; Resp 18; Temp 98; Pulse Ox 92% ; Pain 5/10; 2 ED Course: 19:29 Patient arrived in ED. em2 19:30 Heidy Astudillo is Primary Nurse. bw2 19:31 Triage completed. bw2 19:35 Abdiel Esqueda DO is Private Physician. em2 19:47 Valuables Remains with patient Bed in low position. Side rails up X2. bw2 20:09 Kody Saldaña MD is Attending Physician. tl1 20:33 Abdiel Esqueda DO is Referral Physician. tl1 Administered Medications: 20:00 Drug: Zofran 8 mg; {Note: IM PER VERBAL ORDER IN LEFT GLUT.} Route: IVP; Rate: bolus; lc Infused Over: 1 mins; Site: left antecubital; 20:45 Follow up: Response: Nausea is decreased lc 20:00 Drug: Dilaudid 2 mg; Route: IM; Site: right gluteus; lc 21:02 Follow up: Response: Pain is decreased lc Outcome: 20:33 Discharge ordered by . tl1 20:41 Discharged to home via wheelchair. bw2 20:41 Condition: good 20:41 Discharge Assessment: Patient awake, alert and oriented x 3. No cognitive and/or functional deficits noted. Patient verbalized understanding of disposition instructions. 20:41 Discharge instructions given to patient, Instructed on discharge instructions, follow up and referral plans. Demonstrated understanding of instructions. 20:43 Patient left the ED. 2 07/11 10:51 Discharge F/U Call: Unable to reach: no answer lp Signatures: Diane Siddiqui RN RN Annalisa Solares RN RN Devang-reg, Elly-reg em2 Koyd Saldaña MD MD tl1 Heidy Astudillo [facility]
--- NOTE | 2016-07-12 20:43 | ER PHYSICIAN DOCUMENTATION ---
Physician Documentation [facility] Name:Amy Min Age:41 yrs Sex:Female :1975 Arrival Date:07/10/2016 Time:19:28 Bed1 Private MD:Abdiel Esqueda D ED Kody Catalan Disposition: 07/11 00:30 Chart complete. tl1 Disposition: 07/10/16 20:33 Discharged to Home/Self Care. Impression: Reflex Sympathetic Dystrophy, Unspecified. - Condition is Good. - Medical Reconciliation form form. - Follow up: Abdiel Esqueda DO; When: 2 - 3 days; Reason: Recheck today's complaints, Continuance of care. - Problem is new. - Symptoms have improved. - Notes: FOLLOW UP WITH DR ESQUEDA. HPI: 07/10 19:55 This 41 yrs old Female presents to ER via Wheelchair with complaints of Leg tl1 Pain - right. 19:55 The patient presents with pain. She has a h/o RSD affecting her right leg. She has had tl1 many visits to this ED for that and she is currently working actively, with SHAHZAD Manley and pain specialist, Dr Brown. This last weekend she had a very busy time at her daughter's graduation, thinks she overdid it, and now has more than her usual amount of pain. She says she is prescribed 3 5mg percocets a day. Last night she was seen here for the same thing and instructed to double up on her percocet last evening. She says she had minimal if any relief from that and is here, again, requesting some stronger analgesia. She says dilaudid has worked well in the past.. Historical: - Allergies: Sulfa (Sulfonamide Antibiotics); Levaquin; - Home Meds: 1. Oxycodone HCl Oral 2. Ibuprofen Oral 3. Lyrica Oral - PMHx: Peripheral Neuropathy - / Pain (January 01, 2016); Reflex Sympathetic Dystrophy, Unspecified (July 09, 2016); - PSHx: BKA; CHOLECYSECTOMY; EAR TUBES; - Tetanus: < 10 years. - Ebola Screening: : Patient negative for fever greater than or equal to 101.5 degrees Fahrenheit, and additional compatible Ebola Virus Disease symptoms. Patient denies exposure to infectious person. Patient denies travel to an Ebola-affected area in the 21 days before illness onset. No symptoms or risks identified at this time. . - Social history: Smoking status: Patient uses tobacco products, current every day smoker. ROS: 19:55 MS/extremity: Positive for pain, paresthesias. tl1 19:55 All other systems are negative. Exam: 19:55 Constitutional: This is a well developed, well nourished patient who is awake, alert, tl1 and in no acute distress. 19:55 Head/Face: Normocephalic, atraumatic. tl1 19:55 Cardiovascular: Rate: normal. 19:55 Respiratory: Respirations: normal. 19:55 Musculoskeletal/extremity: Exam is negative for acute changes. Vital Signs: 19:42 BP 172 / 68; Pulse 66; Resp 18; Temp 99(O); Pulse Ox 97% on R/A; Weight 73.94 kg; Pain bw2 8/10; 19:42 Height 5 ft. 4 in. (162.56 cm); bw2 20:16 Pulse 62; Resp 16; Pulse Ox 92% on R/A; Pain 6/10; lc 20:41 BP 162 / 60; Pulse 70; Resp 18; Temp 98; Pulse Ox 92% ; Pain 5/10; bw2 MDM: 20:09 Patient medically screened. tl1 20:20 Differential diagnosis: RSD. Data reviewed: vital signs, nurses notes, old medical tl1 records, and as a result, I will discharge patient. Counseling: I had a detailed discussion with the patient and/or guardian regarding: the historical points, exam findings, and any diagnostic results supporting the discharge/admit diagnosis, the need for outpatient follow up, to return to the emergency department if symptoms worsen or persist or if there are any questions or concerns that arise at home. Response to treatment: the patient's symptoms have markedly improved after treatment. Special discussion: She has a f/u appointment with Dr Mar in 3 days, and plans to keep it. She is also trying to arrange f/u with her interventional pain specialist, Dr Rojas of an implantable nerve stimulator.. Dispensed Medications: 20:00 Drug: Zofran 8 mg; {Note: IM PER VERBAL ORDER IN LEFT GLUT.} Route: IVP; Rate: bolus; lc Infused Over: 1 mins; Site: left antecubital; 20:45 Follow up: Response: Nausea is decreased lc 20:00 Drug: Dilaudid 2 mg; Route: IM; Site: right gluteus; lc 21:02 Follow up: Response: Pain is decreased lc Signatures: Diane Siddiqui RN RN Kody Hodge MD MD tl1 Wilda, Heidy bw2
== END 2016-07-10 20:43 | disposition home or self-care (01) ==
LOC: ER 19:28
DX: G90.521 Complex regional pain syndrome I of right lower limb (principal); S34.3XXS Injury of cauda equina, sequela; G89.4 Chronic pain syndrome; Z89.512 Acquired absence of left leg below knee; Z86.718 Personal history of other venous thrombosis and embolism; F17.210 Nicotine dependence, cigarettes, uncomplicated
CPT/HCPCS: 96372; 96374; 99282; 99283; J1170; J2405

== ENCOUNTER 2016-07-25 21:18 | Emergency (ER) | payer MEDICARE, MEDICAID ==
--- NOTE | 2016-07-25 21:36 | ER PHYSICIAN DOCUMENTATION ---
Physician Documentation [facility] Name:Amy Min Age:41 yrs Sex:Female :1975 Arrival Date:07/25/2016 Time:21:18 Bed1 Private MD:Christine Manley ED, Chris Disposition: 07/25/16 21:27 Discharged to Home/Self Care. Impression: Lower Extremity Pain, Myofascial Pain Syndrome. - Condition is Fair. - Discharge Instructions: Nerve Disease, Peripheral - NEUROPATHY, Peripheral, Adjustment, Chiropractic - MYOFASCIAL PAIN SYNDROME. - Medical Reconciliation form form. - Follow up: Private Physician; When: 4- 6 days; Reason: Recheck today's complaints, Continuance of care. - Problem is an acute exacerbation. - Symptoms have improved. HPI: 07/25 21:20 This 41 yrs old Female presents to ER via Private Vehicle with complaints of cd Leg Pain. 21:20 The patient presents with pain, that is acute. The complaints affect the lateral aspect cd of right calf, right ankle and lateral aspect of right foot. Context: The problem was sustained at home, Patient hs a hx of RSD, she is having a severe breakthrough pain spell. She is soon to get a nerve stimulator for pain relief in 5 days.. Onset: The symptom(s)/episode began/occurred today. Severity of symptoms: At their worst the symptoms were severe, in the emergency department the symptoms are unchanged. Historical: - Allergies: Sulfa (Sulfonamide Antibiotics); Levaquin; - Home Meds: 1. Oxycodone HCl Oral 2. Ibuprofen Oral 3. Lyrica Oral - PMHx: Peripheral Neuropathy - / Pain (January 01, 2016); Reflex Sympathetic Dystrophy, Unspecified (July 09, 2016); - PSHx: BKA; CHOLECYSECTOMY; - Ebola Screening: : Patient negative for fever greater than or equal to 101.5 degrees Fahrenheit, and additional compatible Ebola Virus Disease symptoms. Patient denies exposure to infectious person. Patient denies travel to an Ebola-affected area in the 21 days before illness onset. No symptoms or risks identified at this time. . - Immunization history: Flu Vaccine >1 year. - Social history: Smoking status: Patient states was never smoker of tobacco. Patient/guardian denies using alcohol, street drugs, IV drugs, marijuana. ROS: 21:20 Constitutional: Negative for chills, fever. cd 21:20 MS/extremity: Positive for pain, Negative for erythema, swelling, tingling. 21:20 Skin: Negative for acute changes. Exam: 21:20 Constitutional: The patient appears alert, awake, anxious, in obvious distress, cd moderately distressed. 21:20 Musculoskeletal/extremity: Extremities: grossly normal except: noted in the right leg: pain, ROM: no acute changes, Circulation is intact in all extremities. Sensation intact. 21:20 Skin: Exam negative for acute changes. 21:20 Neuro: Exam negative for acute changes. Vital Signs: 21:20 BP 165 / 107; Pulse 93; Resp 18; Temp 97.7; Pulse Ox 95% on R/A; sc1 MDM: 21:25 Patient medically screened. cd 21:25 Data reviewed: vital signs, nurses notes, old medical records, and as a result, I will cd discharge patient, prescribe pain medication, Dilaudid. Data interpreted: Pulse oximetry: on room air is 95 %. Interpretation: normal. Counseling: I had a detailed discussion with the patient and/or guardian regarding: the historical points, exam findings, and any diagnostic results supporting the discharge/admit diagnosis, the need for outpatient follow up, for a recheck, with the patient's primary care provider, to return to the emergency department if symptoms worsen or persist or if there are any questions or concerns that arise at home. Dispensed Medications: 21:23 Drug: Dilaudid 3 mg; Route: IM; Site: left gluteus; va1 07/26 06:58 Follow up: Response: No adverse reaction va1 Signatures: Mariah Garcia, RN RN sc1 Jan Conteh MD MD cd
--- NOTE | 2016-07-27 21:35 | ER NURSING DOCUMENTATION ---
Nurse's Notes [facility] Name:Amy Min Age:41 yrs Sex:Female :1975 Arrival Date:07/25/2016 Time:21:18 Bed1 Private MD:Christine Manley Diagnosis:Lower Extremity Pain;Myofascial Pain Syndrome Presentation: 07/25 21:20 Presenting complaint: Patient states: nerve pain. Transition of care: Home. Notified ED sc1 Physician of patient's arrival and CC Dr. Conteh notified. 21:20 Method Of Arrival: Private Vehicle sc1 21:53 Acuity: ABIGAIL 4 pr1 Triage Assessment: 21:20 General: Appears comfortable, well developed, well nourished, well groomed, Behavior is pr1 cooperative, pleasant. Pain: Complains of pain in right foot. Historical: - Allergies: Sulfa (Sulfonamide Antibiotics); Levaquin; - Home Meds: 1. Oxycodone HCl Oral 2. Ibuprofen Oral 3. Lyrica Oral - PMHx: Peripheral Neuropathy - / Pain (January 01, 2016); Reflex Sympathetic Dystrophy, Unspecified (July 09, 2016); - PSHx: BKA; CHOLECYSECTOMY; - Ebola Screening: : Patient negative for fever greater than or equal to 101.5 degrees Fahrenheit, and additional compatible Ebola Virus Disease symptoms. Patient denies exposure to infectious person. Patient denies travel to an Ebola-affected area in the 21 days before illness onset. No symptoms or risks identified at this time. . - Immunization history: Flu Vaccine >1 year. - Social history: Smoking status: Patient states was never smoker of tobacco. Patient/guardian denies using alcohol, street drugs, IV drugs, marijuana. Screenin:20 Infectious Disease Risk None. Abuse screen: Denies threats or abuse. Nutritional pr1 screening: No deficits noted. Vital Signs: 21:20 BP 165 / 107; Pulse 93; Resp 18; Temp 97.7; Pulse Ox 95% on R/A; pr1 ED Course: 21:18 Patient arrived in ED. em2 21:19 Christine Manley is Private Physician. em2 21:20 Notified ED Physician of patient's arrival and chief complaint. Dr. Conteh notified. pr1 21:25 Jan Conteh MD is Attending Physician. cd 21:34 Mariah Garcia RN is Primary Nurse. [facility] 21:45 Valuables Remains with patient. pr1 21:53 Triage completed. pr1 Administered Medications: 21:23 Drug: Dilaudid 3 mg; Route: IM; Site: left gluteus; [facility] 07/26 06:58 Follow up: Response: No adverse reaction [facility] Outcome: 07/25 21:27 Discharge ordered by . 21:45 Discharged to home ambulatory, with crutches. [facility] 21:45 Condition: stable 21:45 Discharge instructions given to patient, Instructed on discharge instructions, follow up and referral plans. Demonstrated understanding of instructions. Signatures: Mariah Garcia RN RN pr1 Jan Conteh MD MD Devang-reg, Carlos em2
== END 2016-07-25 21:36 | disposition home or self-care (01) ==
LOC: ER 21:18
DX: G90.521 Complex regional pain syndrome I of right lower limb (principal); G89.4 Chronic pain syndrome; S34.3XXS Injury of cauda equina, sequela; M79.1 Myalgia; Z89.512 Acquired absence of left leg below knee; Z86.718 Personal history of other venous thrombosis and embolism; F17.210 Nicotine dependence, cigarettes, uncomplicated; Z79.899 Other long term (current) drug therapy
CPT/HCPCS: 96372; 99282; 99283; J1170

== ENCOUNTER 2016-08-17 13:49 | Emergency (ER) | payer MEDICARE, MEDICAID ==
--- NOTE | 2016-08-17 14:20 | RADIOLOGY REPORT ---
HISTORY: Cough COMPARISON: None. FINDINGS: The cardiomediastinal silhouette is within normal limits. The lungs are clear without confluent infiltrate, effusion, or pneumothorax. No displaced fracture or apparent osseous lesion. IMPRESSION: No acute radiographic abnormality. Final Electronic Signature: This report was electronically signed by Ashok Schulz MD on 08/17/2016 2:17 P M. bcox /
--- NOTE | 2016-08-17 14:24 | ER PHYSICIAN DOCUMENTATION ---
Physician Documentation [facility] Name:Amy Min Age:41 yrs Sex:Female :1975 Arrival Date:08/17/2016 [facility] MD:Christine Manley ED, Brian Disposition: 08/17/16 14:04 Discharged to Home/Self Care. Impression: Bronchitis Acute. - Condition is Good. - Discharge Instructions: BRONCHITIS, Abx Tx (Adult). - Prescriptions for Guiatuss DM - take 10 milliliter by ORAL route 4 times per day PRN cough; 120 milliliter. Doxycycline Hyclate 100 mg Oral Tablet - take 1 tablet by ORAL route every 12 hours; 20 tablet. - Medical Reconciliation form form. - Follow up: Christine Manley; When: As needed; Reason: Worsening of condition. - Problem is new. - Symptoms are unchanged. HPI: 08/17 16:22 This 41 yrs old Female presents to ER via Private Vehicle with complaints of be Productive Cough. 16:22 The patient or guardian reports cough, described as mild. The patient has experienced a be previous episode, last year, and the symptoms today are exactly the same. Historical: - Allergies: Sulfa (Sulfonamide Antibiotics); Levaquin; - Home Meds: 1. Oxycodone HCl Oral 2. Lyrica Oral 3. Clonidine Oral 4. Lisinopril Oral - PSHx: BKA; CHOLECYSECTOMY; - Tetanus: < 10 years. - Ebola Screening: : Patient denies exposure to infectious person. Patient denies travel to an Ebola-affected area in the 21 days before illness onset. . - Immunization history: Pneumococcal vaccine is up to date. - Social history: Smoking status: Patient uses tobacco products, current every day smoker. Patient uses marijuana Patient/guardian denies using alcohol. ROS: 16:22 Respiratory: Positive for cough, with green sputum. be 16:22 All other systems are negative. Exam: 16:22 Constitutional: This is a well developed, well nourished patient who is awake, alert, be and in no acute distress. Head/Face: Normocephalic, atraumatic. Eyes: Pupils equal round and reactive to light, extra-ocular motions intact. Lids and lashes normal. Conjunctiva and sclera are non-icteric and not injected. Cornea within normal limits. Periorbital areas with no swelling, redness, or edema. 16:22 ENT: Nares patent. No nasal discharge, no septal abnormalities noted. Tympanic be membranes are normal and external auditory canals are clear. Oropharynx with no redness, swelling, or masses, exudates, or evidence of obstruction, uvula midline. Mucous membranes moist. 16:22 Respiratory: Respirations: normal, Breath sounds: are normal, clear throughout. 16:24 Neuro: Orientation: is normal. be Vital Signs: 14:05 BP 146 / 68; Pulse 64; Resp 18; Temp 97.8; Pulse Ox 94% on R/A; Pain 3/10; st MDM: 14:01 Patient medically screened. be 16:22 Differential Diagnosis: Bronchitis Sinusitis Pneumonia. Data reviewed: vital signs, be nurses notes, radiologic studies, plain films, and as a result, I will discharge patient, administer antibiotics Doxycycline. 08/17 14:22 Order name: [id number]; Complete Time: 16:22 EDMS 08/17 16:21 Interpretation: Normal. be Dispensed Medications: No medications were administered Signatures: Rosa Moore, RN RN Ashok Jones MD MD be
--- NOTE | 2016-08-17 14:24 | ER NURSING DOCUMENTATION ---
Nurse's Notes [facility] Name:Amy Min Age:41 yrs Sex:Female :1975 Arrival Date:08/17/2016 Time:13:49 BedRadiology Private MD:Christine Manley Diagnosis:Bronchitis Acute Presentation: 08/17 14:01 Presenting complaint: Patient states: pt has had a cough for a little over a week with st some chest discomfort. pt had pneumonia in June and is concerned it may be back. Transition of care: Home. 14:01 Acuity: ABIGAIL 3 st 14:01 Method Of Arrival: Private Vehicle st Triage Assessment: 14:04 General: Appears in no apparent distress, Behavior is cooperative. Pain: Complains of st pain in left lateral anterior chest Pain currently is 3 out of 10 on a pain scale. Cardiovascular: No deficits noted. Respiratory: Airway is patent Respiratory effort is even, unlabored, Respiratory pattern is regular, symmetrical, Breath sounds are diminished bilaterally. Reports cough that is productive, Onset: The symptoms/episode began/occurred over a week. Historical: - Allergies: Sulfa (Sulfonamide Antibiotics); Levaquin; - Home Meds: 1. Oxycodone HCl Oral 2. Lyrica Oral 3. Clonidine Oral 4. Lisinopril Oral - PSHx: BKA; CHOLECYSECTOMY; - Tetanus: < 10 years. - Ebola Screening: : Patient denies exposure to infectious person. Patient denies travel to an Ebola-affected area in the 21 days before illness onset. . - Immunization history: Pneumococcal vaccine is up to date. - Social history: Smoking status: Patient uses tobacco products, current every day smoker. Patient uses marijuana Patient/guardian denies using alcohol. Screenin:07 Infectious Disease Risk TB Exposure. Abuse screen: Denies threats or abuse. Denies st injuries from another. pt feels safe at home. Nutritional screening: No deficits noted. Vital Signs: 14:05 BP 146 / 68; Pulse 64; Resp 18; Temp 97.8; Pulse Ox 94% on R/A; Pain 3/10; st ED Course: 13:50 Patient arrived in ED. ama 13:51 Christine Manley is Private Physician. ama 14:01 Rosa Moore RN is Primary Nurse. st 14:01 Ashok Jones MD is Attending Physician. be 14:[address] 14:04 Christine Manley is Referral Physician. be 14:06 Patient moved to radiology. hz 14:07 Valuables Remains with patient Patient has correct armband on for positive st identification. Placed in gown. Bed in low position. Administered Medications: No medications were administered Outcome: 14:04 Discharge ordered by . be 14:21 Discharged to home via wheelchair. st 14:21 Condition: stable 14:21 Discharge instructions given to patient, Instructed on discharge instructions, follow up and referral plans. medication usage, Prescriptions given X 2. 14:24 Patient [address] ED[address] 0708 09:40 Discharge F/U Call: Spoke with: patient. other: Name: pt still feels sick. Pt is st taking her ABX. Signatures: Rosa Moore, RN RN Ashok Byrne MD MD be Averdick, Andrew, Reg Reg Carmina Foy
== END 2016-08-17 14:24 | disposition home or self-care (01) ==
LOC: ER 13:49
DX: J20.9 Acute bronchitis, unspecified (principal); Z79.899 Other long term (current) drug therapy; Z89.512 Acquired absence of left leg below knee
CPT/HCPCS: 71020; 99283

== ENCOUNTER 2016-08-18 16:21 | Emergency (ER) | payer MEDICARE, MEDICAID ==
[2016-08-18] MEDS ORDERED: KETOROLAC TROMETHAMINE 30 MG/ML VIAL ONE (16:42)
[2016-08-18] MEDS ORDERED: METOCLOPRAMIDE HCL 10 MG/2 ML VIAL ONE (16:43)
[2016-08-18] MEDS ORDERED: predniSONE 10 MG TABLET PO ONE (16:43)
[2016-08-18] MEDS ORDERED: IPRATROPIUM/ALBUTEROL 0.5/3 MG 3 ML AMPUL.NEB INHALATION ONE (16:43)
--- NOTE | 2016-08-18 17:08 | ER NURSING DOCUMENTATION ---
Nurse's Notes [facility] Name:Amy Min Age:41 yrs Sex:Female :1975 Arrival Date:08/18/2016 Time:16:21 Bed1 Private MD:Christine Manley Diagnosis:Bronchitis Chronic Mucopurulent;Peripheral Neuropathy Presentation: 08/18 16:38 Presenting complaint: Patient states: I was diagnosed with bronchitis and I'm not mk2 feeling better and I'm having nerve pain in the right and left leg. Transition of care: Home. Resp Distress? No respiratory distress is noted at this time. Care prior to arrival: Medication(s) given: abx. 16:38 Acuity: ABIGAIL 4 mk2 16:38 Method Of Arrival: Wheelchair mk2 Triage Assessment: 16:57 General: Appears in no apparent distress, Behavior is cooperative, pleasant. Pain: mk2 Complains of pain in right leg and left leg. Neuro: No deficits noted. Cardiovascular: Rhythm is regular. Respiratory: Breath sounds with rhonchi bilaterally. Derm: No deficits noted. Historical: - Allergies: Sulfa (Sulfonamide Antibiotics); Levaquin; - Home Meds: 1. Oxycodone HCl Oral 2. Lyrica Oral 3. Clonidine Oral 4. Lisinopril Oral - PMHx: Hypertension; CHRONIC PAIN; - PSHx: BKA; CHOLECYSECTOMY; - Tetanus: < 10 years. - Ebola Screening: : Patient negative for fever greater than or equal to 101.5 degrees Fahrenheit, and additional compatible Ebola Virus Disease symptoms. Patient denies exposure to infectious person. Patient denies travel to an Ebola-affected area in the 21 days before illness onset. No symptoms or risks identified at this time. . - Immunization history: Flu Vaccine < 1 year. - Social history: Smoking status: Patient uses tobacco products, heavy tobacco smoker. Patient/guardian denies using alcohol, street drugs. Screenin:58 Infectious Disease Risk None. Abuse screen: Denies threats or abuse. Nutritional mk2 screening: No deficits noted. Assessment: 16:58 See Triage Assessment done by same RN. mk2 17:06 Cardiovascular: Capillary refill < 3 seconds. Respiratory: Respiratory effort is mk2 unlabored. Vital Signs: 16:27 BP 174 / 114; Pulse 77; Resp 16; Temp 98.0(O); Pulse Ox 93% on R/A; Weight 72.57 kg arc (R); Height 5 ft. 5 in. (165.10 cm) (R); Pain 7/10; 17:02 BP 163 / 86; Pulse 99; Resp 18; Pulse Ox 93% on R/A; Pain 4/10; mk2 16:27 Body Mass Index 26.63 (72.57 kg, 165.10 cm) [facility] ED Course: 16:26 Patient arrived in ED. arc 16:27 Ashok Jones MD is Attending Physician. be 16:27 Christine Manley is Private Physician. arc 16:29 Christine Manley is Referral Physician. be 16:37 Amber Vegas, SUSAN is Primary Nurse. mk2 16:42 Triage completed. mk2 16:58 Arm band placed on Bed in low position Call Light in Reach Gowned HOB Elevated Side mk2 rails up x1. 17:07 Valuables Remains with patient Call light in reach. Side rails up X 1. mk2 Administered Medications: 16:19 Drug: DuoNeb (Albuterol 2.5 mg, Atrovent 0.5 mg); 3 ml; Route: Nebulizer; mk2 17:00 Follow up: Response: No adverse reaction mk2 16:19 Drug: DuoNeb (Albuterol 2.5 mg, Atrovent 0.5 mg); 3 ml; Route: Nebulizer; mk2 17:01 Follow up: Response: No adverse reaction mk2 16:20 Drug: Toradol 30 mg; Route: IM; Site: right gluteus; mk2 17:00 Follow up: Response: No adverse reaction mk2 16:20 Drug: Dilaudid 1 mg; Route: IM; Site: right gluteus; mk2 17:00 Follow up: Response: Pain is decreased mk2 16:20 Drug: Reglan 5 mg; Route: IM; Site: right gluteus; mk2 17:00 Follow up: Response: No adverse reaction mk2 16:21 Drug: predniSONE 40 mg; Route: PO; mk2 17:00 Follow up: Response: No adverse reaction mk2 Outcome: 16:30 Discharge ordered by . be 17:02 Discharged to home via wheelchair. mk2 17:02 Condition: stable 17:02 Discharge instructions given to patient, Instructed on discharge instructions, follow up and referral plans. medication usage, Prescriptions given X 1. 17:07 Patient left the ED. mk2 08/19 16:59 Discharge F/U Call: Spoke with: patient. Are you having any pain? yes. Pain level is lb 5 / 10 Have you filled your prescriptions? yes. Did your discharge instructions answer all of your questions? yes Have you made a f/u appointment? yes Overall Care on a scale of 1-10 with 10 being the best care, you rate our care as: the rating of 9. Signatures: Ashok Jones MD MD be Kruger, Meg, RN RN mk2 Milagros Manley, Jenifer Villa
--- NOTE | 2016-08-18 17:09 | ER PHYSICIAN DOCUMENTATION ---
Physician Documentation [facility] Name:Amy Min Age:41 yrs Sex:Female :1975 Arrival Date:08/18/2016 Time:16:21 Bed1 Private MD:Christine Manley ED, Brian Disposition: 08/18/16 16:30 Discharged to Home/Self Care. Impression: Bronchitis Chronic Mucopurulent, Peripheral Neuropathy. - Condition is Good. - Discharge Instructions: BRONCHITIS, Abx Tx (Adult). - Prescriptions for Prednisone 20 mg Oral Tablet - take 2 tablet by ORAL route once daily for 5 days; 10 tablet. - Medical Reconciliation form form. - Follow up: Christine Manley; When: As needed; Reason: Worsening of condition, Continuance of care. - Problem is an acute exacerbation. - Symptoms have improved. Historical: - Allergies: Sulfa (Sulfonamide Antibiotics); Levaquin; - Home Meds: 1. Oxycodone HCl Oral 2. Lyrica Oral 3. Clonidine Oral 4. Lisinopril Oral - PMHx: Hypertension; CHRONIC PAIN; - PSHx: BKA; CHOLECYSECTOMY; - Tetanus: < 10 years. - Ebola Screening: : Patient negative for fever greater than or equal to 101.5 degrees Fahrenheit, and additional compatible Ebola Virus Disease symptoms. Patient denies exposure to infectious person. Patient denies travel to an Ebola-affected area in the 21 days before illness onset. No symptoms or risks identified at this time. . - Immunization history: Flu Vaccine < 1 year. - Social history: Smoking status: Patient uses tobacco products, heavy tobacco smoker. Patient/guardian denies using alcohol, street drugs. Vital Signs: 08/18 16:27 BP 174 / 114; Pulse 77; Resp 16; Temp 98.0(O); Pulse Ox 93% on R/A; Weight 72.57 kg arc (R); Height 5 ft. 5 in. (165.10 cm) (R); Pain 7/10; 17:02 BP 163 / 86; Pulse 99; Resp 18; Pulse Ox 93% on R/A; Pain 4/10; mk2 16:27 Body Mass Index 26.63 (72.57 kg, 165.10 cm) arc MDM: 16:27 Patient medically screened. be Dispensed Medications: 16:19 Drug: DuoNeb (Albuterol 2.5 mg, Atrovent 0.5 mg); 3 ml; Route: Nebulizer; mk2 17:00 Follow up: Response: No adverse reaction mk2 16:19 Drug: DuoNeb (Albuterol 2.5 mg, Atrovent 0.5 mg); 3 ml; Route: Nebulizer; mk2 17:01 Follow up: Response: No adverse reaction mk2 16:20 Drug: Toradol 30 mg; Route: IM; Site: right gluteus; mk2 17:00 Follow up: Response: No adverse reaction mk2 16:20 Drug: Dilaudid 1 mg; Route: IM; Site: right gluteus; mk2 17:00 Follow up: Response: Pain is decreased mk2 16:20 Drug: Reglan 5 mg; Route: IM; Site: right gluteus; mk2 17:00 Follow up: Response: No adverse reaction mk2 16:21 Drug: predniSONE 40 mg; Route: PO; mk2 17:00 Follow up: Response: No adverse reaction 2 Signatures: Ashok Jones MD MD be Kruger, Meg, RN RN 2
== END 2016-08-18 17:07 | disposition home or self-care (01) ==
LOC: ER 16:21
DX: J41.1 Mucopurulent chronic bronchitis (principal); G90.521 Complex regional pain syndrome I of right lower limb; G89.4 Chronic pain syndrome; S34.3XXS Injury of cauda equina, sequela; Z89.512 Acquired absence of left leg below knee; Z86.718 Personal history of other venous thrombosis and embolism; F17.210 Nicotine dependence, cigarettes, uncomplicated; Z79.899 Other long term (current) drug therapy
CPT/HCPCS: 94640; 96372; 99283; 99284; J1170; J1885; J2765; J7512; J7620

== ENCOUNTER 2016-08-22 18:21 | Inpatient (IN) | payer MEDICARE, MEDICAID ==
[2016-08-22] MEDS ORDERED: IPRATROPIUM/ALBUTEROL 0.5/3 MG 3 ML AMPUL.NEB INHALATION ONE ×3 (19:03→20:17)
[2016-08-22] MEDS ORDERED: NORMAL SALINE 1,000 ML IV ONE (19:49)
[2016-08-22] MEDS ORDERED: METHYLPREDNISOLONE SOD 125 MG/2 ML VIAL ONE (19:49)
[2016-08-22] MEDS ORDERED: MAGNESIUM SULFATE 1 GM/100 ML IV ONE ×2 (19:50→20:43)
[2016-08-22] MEDS ORDERED: PIGGYBACK IV ONE ×2 (19:50→20:43)
[2016-08-22] MEDS ORDERED: POLYETHYLENE GLYCOL 3350 17 GM POWD.PACK PO PRN (20:14)
[2016-08-22] MEDS ORDERED: MAG-AL PLUS XS SUSP 30 ML UDC PO PRN (20:14)
[2016-08-22] MEDS ORDERED: HOME MEDICATION LIST NEEDED 1 EA EACH MISC ONE (20:14)
[2016-08-22] MEDS ORDERED: ACETAMINOPHEN 325 MG TABLET PO PRN (20:14)
[2016-08-22 20:16] LABS: BASOPHIL# 0.3 X 10^3uL (0.0-0.1); EOSINOPHILS 3.5 % (0.0-6.0); EOSINOPHILS# 0.3 X 10^3uL (0.0-0.4); HEMATOCRIT 45.3 % (36.0-48.0); HEMOGLOBIN 15.5 g/dL (12.0-16.0); LYMPHOCYTES 22.3 % (20.0-40.0); LYMPHOCYTES# 2.2 X 10^3uL (0.8-3.8); MEAN CORPUS. HGB CONCENTRATION 34.3 g/dL (32.0-36.0); MEAN CORPUSCULAR HEMOGLOBIN 32.2 pg (29.0-35.0); MEAN PLATELET VOLUME 9.5 fL (7.4-10.4); MONOCYTES 5.4 % (2.0-10.0); MONOCYTES# 0.5 X 10^3uL (0.2-1.0); NEUTROPHILS 65.8 % (54.0-75.0); NEUTROPHILS# 6.6 X 10^3uL (2.6-6.7); PLATELET COUNT 193 X 10^3uL (130-440); RED BLOOD COUNT 4.82 X 10^6uL (4.20-6.10); RED CELL DISTRIBUTION WIDTH 13.9 % (11.5-14.5); WHITE BLOOD COUNT 9.9 X 10^3uL (3.9-10.7)
[2016-08-22 20:31] LABS: BLOOD UREA NITROGEN 16 mg/dL (7-17); CALCIUM 9.6 mg/dL (8.4-10.2); CHLORIDE 106 mmol/L (98-107); EST GLOMERULAR FILTRATION RATE > 60 mL/min; GLUCOSE 93 mg/dL (70-100); POTASSIUM 3.7 mmol/L (3.5-5.1); SODIUM 140 mmol/L (137-145)
[2016-08-22] MEDS ORDERED: OXYMETAZOLINE 0.05% NASAL 15 SPRAYS/15 ML BTL NASAL ONE (20:33)
[2016-08-22] MEDS ORDERED: NORMAL SALINE 1,000 ML IV SCH (21:00)
[2016-08-22] MEDS ORDERED: PREGABALIN 50 MG CAPSULE PO PRN (21:11)
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
[2016-08-22] MEDS ORDERED: IPRATROPIUM/ALBUTEROL 0.5/3 MG 3 ML AMPUL.NEB INHALATION PRN (21:38)
--- NOTE | 2016-08-22 21:46 | ER PHYSICIAN DOCUMENTATION ---
Physician Documentation [facility] Name:Amy Min Age:41 yrs Sex:Female :1975 Arrival Date:08/22/2016 Time:18:21 Bed1 Private MD:Christine Manley ED, Brian Disposition: 08/22/16 21:11 Admit ordered for No [place]. Preliminary diagnosis are Bronchitis Asthmatic, Hypoxia, Pain Syndrome- Chronic. - Bed requested for Medical/Surgical. - Condition is Fair. - Problem is an acute exacerbation. - Symptoms have improved. 23 HR OBS No HPI: 08/22 18:42 This 41 yrs old Female presents to ER via Private Vehicle with complaints of sc Cough. 18:42 The patient or guardian reports airway noise, cough, difficulty breathing. Onset: The sc symptom(s)/episode began/occurred 5 day(s) ago, and became worse. Severity of symptoms: At their worst the symptoms were severe. Associated signs and symptoms: Pertinent positives: fever, rhinorrhea. The patient has experienced similar episodes in the past, a few times. Historical: - Allergies: Sulfa (Sulfonamide Antibiotics); Levaquin; - Home Meds: 1. Oxycodone HCl Oral 2. Lyrica Oral 3. Clonidine Oral 4. Lisinopril Oral - PMHx: HYPERTENSION; CHRONIC PAIN; Bronchitis Chronic Mucopurulent (August 18, 2016); Peripheral Neuropathy (August 18, 2016); - PSHx: BKA; CHOLECYSECTOMY; - Tetanus: < 10 years. - Ebola Screening: : Patient negative for fever greater than or equal to 101.5 degrees Fahrenheit, and additional compatible Ebola Virus Disease symptoms. - Immunization history: Flu Vaccine < 1 year. - Social history: Smoking status: Patient uses tobacco products, current every day smoker. ROS: 18:42 Eyes: Negative for injury, pain, redness, and discharge. sc ENT: Negative for injury, pain, and discharge. Neck: Negative for injury, pain, and swelling. Cardiovascular: Negative for chest pain, palpitations, and edema. Abdomen/GI: Negative for abdominal pain, nausea, vomiting, diarrhea, and constipation. Back: Negative for injury and pain. MS/Extremity: Negative for injury and deformity. 18:42 Skin: Negative for injury, rash, and discoloration. sc 18:42 Constitutional: Positive for body aches, chills, fatigue, fever. 18:42 Respiratory: Positive for cough, shortness of breath, wheezing. Exam: Head/Face: Normocephalic, atraumatic. Eyes: Pupils equal round and reactive to light, extra-ocular motions intact. Lids and lashes normal. Conjunctiva and sclera are non-icteric and not injected. Cornea within normal limits. Periorbital areas with no swelling, redness, or edema. ENT: Nares patent. No nasal discharge, no septal abnormalities noted. Tympanic membranes are normal and external auditory canals are clear. Oropharynx with no redness, swelling, or masses, exudates, or evidence of obstruction, uvula midline. Mucous membranes moist. Neck: Trachea midline, no thyromegaly or masses palpated, and no cervical lymphadenopathy. Supple, full range of motion without nuchal rigidity, or vertebral point tenderness. No meningismus. Chest/axilla: Normal chest wall appearance and motion. Nontender with no deformity. No lesions are appreciated. Cardiovascular: Regular rate and rhythm with a normal S1 and S2. No gallops, murmurs, or rubs. Normal PMI, no JVD. No pulse deficits. Abdomen/GI: Soft, non-tender, with normal bowel sounds. No distension or tympany. No guarding or rebound. No evidence of tenderness throughout. 18:43 Back: No spinal tenderness. No costovertebral tenderness. Full range of motion. sc 18:43 Constitutional: The patient appears alert, awake, frail, lethargic. 18:43 Respiratory: moderate respiratory distress is noted, Respirations: tachypnea, Breath sounds: rales, rhonchi, wheezing, is heard diffusely. 18:43 Neuro: Orientation: is normal. Vital Signs: 18:31 BP 133 / 71; Pulse 63; Resp 16; Temp 98.3(O); Pulse Ox 88% on R/A; Weight 72.57 kg; rh Height 5 ft. 5 in. (165.10 cm); Pain 5/10; 21:25 Pulse 94; Resp 22; Pulse Ox 94% on 3 lpm NC; lb 21:44 BP 132 / 74; Pulse 74; Resp 22; Pulse Ox 94% on 3 lpm NC; lb 18:31 Body Mass Index 26.63 (72.57 kg, 165.10 cm) rh MDM: 18:23 Patient medically screened. va 18:43 Differential Diagnosis: Obstructed Airway Bronchitis Influenza Upper Respiratory sc Infection Viral Syndrome Pneumonia. 18:49 Patient medically screened. be 19:03 Physician consultation: Ashok Jones MD was called at 19:04, was contacted at 19:04, va regarding patient's condition. 21:08 Data reviewed: vital signs, nurses notes, lab test result(s), radiologic studies, and be as a result, I will admit patient, DuoNeb, O2, magnesium, methylprednisalone. 08/22 20:18 Order name: CBC AUTO DIF, MDIF/RMOR IF IND; Complete Time: 21:12 [facility]CO 08/22 21:11 Interpretation: Normal. be 08/22 20:19 Order name: LACTATE; Complete Time: 21:12 EDCO 08/22 21:11 Interpretation: Normal. be 08/22 20:32 Order name: BASIC METABOLIC PANEL; Complete Time: 21:12 [facility] 08/22 21:11 Interpretation: Normal. 08/22 20:32 Order name: C-REACTIVE PROTEIN; Complete Time: 21:12 [facility] 08/22 21:11 Interpretation: Abnormal. 08/23 06:59 Order name: CBC AUTO DIF, MDIF/RMOR IF IND [facility] 08/23 07:11 Order name: BASIC METABOLIC PANEL [facility] 08/23 07:11 Order name: HEPATIC PANEL [facility] 08/23 13:48 Order name: UA W/ MICRO -CULTURE IF IND [facility] 08/23 20:10 Order name: BLOOD CULTURE [facility] 08/23 20:10 Order name: BLOOD CULTURE [facility] 08/23 08:47 Order name: CHEST; SINGLE [place]IEW [id number] [facility] 08/22 18:41 Order name: I & O; Complete Time: 18:47 va 08/22 18:41 Order name: Oxygen; Complete Time: 18:47 va 08/22 18:41 Order name: Place Patient On Monitor; Complete Time: 18:47 va 08/22 18:41 Order name: Pulse Ox Continuous; Complete Time: 18:47 va Dispensed Medications: 18:58 Drug: DuoNeb (Albuterol 2.5 mg, Atrovent 0.5 mg); 3 ml; Route: Nebulizer; rh 20:45 Follow up: Response: No adverse reaction; Wheezing diminished lp 20:09 Drug: Solu-MEDROL 125 mg; Route: IVP; Site: right forearm; lb 20:46 Follow up: Response: No adverse reaction; No change in condition lp 20:10 Drug: Magnesium Sulfate 2 grams; Route: IVPB; Infused Over: 30 hrs; Site: right forearm;lb 21:11 Follow up: IV Status: Completed infusion; IV Intake: 200ml lb 20:10 Drug: DuoNeb (Albuterol 2.5 mg, Atrovent 0.5 mg); 3 ml; Route: Nebulizer; lb 21:12 Follow up: Response: Wheezing diminished lb 20:21 Drug: Afrin Drops (0.05 %) 1 sprays; Route: Intranasal; Site: both nares; lp Signatures: Annalisa Solares RN RN lp Krish Manley MD MD sc Elliott, Brian, MD MD be Hofsess, Rachel rh Bollock, Lynda
--- NOTE | 2016-08-22 21:46 | ER NURSING DOCUMENTATION ---
Nurse's Notes [facility] Name:Amy Min Age:41 yrs Sex:Female :1975 Arrival Date:08/22/2016 Time:18:21 Bed1 Private MD:Christine Manley Diagnosis:Bronchitis Asthmatic;Hypoxia;Pain Syndrome- Chronic Presentation: 08/22 18:23 Acuity: ABIGAIL 3 18:29 Presenting complaint: Patient states: Pt c/o cough and sinus congestion since Saturday. rh Pt has been seen in the ED twice and at [facility]. [facility] gave her a pulse oximeter to wear which was reading 88% on RA. Pt feeling worse today. Transition of care: Home. 18:29 Method Of Arrival: Private Vehicle Triage Assessment: 18:31 General: Appears in no apparent distress, Behavior is cooperative. Pain: Complains of rh pain in chest. EENT: Oral mucosa is dry. Neuro: Level of Consciousness is awake, alert, obeys commands. Cardiovascular: Capillary refill < 3 seconds. Respiratory: Airway is patent Breath sounds with wheezes Reports cough that is Denies shortness of breath. GI: Abd is soft and non tender Denies nausea. : No deficits noted. Derm: Skin is intact, is healthy with good turgor, Skin is pink, warm & dry. Historical: - Allergies: Sulfa (Sulfonamide Antibiotics); Levaquin; - Home Meds: 1. Oxycodone HCl Oral 2. Lyrica Oral 3. Clonidine Oral 4. Lisinopril Oral - PMHx: HYPERTENSION; CHRONIC PAIN; Bronchitis Chronic Mucopurulent (August 18, 2016); Peripheral Neuropathy (August 18, 2016); - PSHx: BKA; CHOLECYSECTOMY; - Tetanus: < 10 years. - Ebola Screening: : Patient negative for fever greater than or equal to 101.5 degrees Fahrenheit, and additional compatible Ebola Virus Disease symptoms. - Immunization history: Flu Vaccine < 1 year. - Social history: Smoking status: Patient uses tobacco products, current every day smoker. Screenin:33 Infectious Disease Risk None. Abuse screen: Denies threats or abuse. Denies injuries rh from another. Nutritional screening: No deficits noted. Assessment: 18:32 See Triage Assessment done by same RN. 20:11 Reassessment: oxygen turned up to 3l nc due to o2 sat 88%. lb Vital Signs: 18:31 BP 133 / 71; Pulse 63; Resp 16; Temp 98.3(O); Pulse Ox 88% on R/A; Weight 72.57 kg; rh Height 5 ft. 5 in. (165.10 cm); Pain 5/10; 21:25 Pulse 94; Resp 22; Pulse Ox 94% on 3 lpm NC; lb 21:44 BP 132 / 74; Pulse 74; Resp 22; Pulse Ox 94% on 3 lpm NC; lb 18:31 Body Mass Index 26.63 (72.57 kg, 165.10 cm) rh ED Course: 18:22 Patient arrived in ED. ama 18:22 Christine Manley is Private Physician. ama 18:23 Krish Manley MD is Attending Physician. sc 18:23 Triage completed. rh 18:25 Oxygen Oxygen administration via nasal cannula @ 2L/min. rh 18:29 Mariola Romano is Primary Nurse. rh 18:32 Notified ED Physician of patient's arrival and chief complaint. Dr. Manley notified. rh 18:33 Valuables Remains with patient Patient has correct armband on for positive rh identification. Bed in low position. Call light in reach. Side rails up X 1. 18:48 Attending Physician role handed off by Krish Manley MD be 18:48 Ashok Jones MD is Attending Physician. be 19:06 Attending Physician role handed off by Ashok Jones MD sc 19:06 Krish Manley MD is Attending Physician. ok 19:29 Attending Physician role handed off by Krish Manley MD be 19:29 Ashok Jones MD is Attending Physician. be 21:09 No [place] MD is Admitting Physician. be Administered Medications: 18:58 Drug: DuoNeb (Albuterol 2.5 mg, Atrovent 0.5 mg); 3 ml; Route: Nebulizer; rh 20:45 Follow up: Response: No adverse reaction; Wheezing diminished lp 20:09 Drug: Solu-MEDROL 125 mg; Route: IVP; Site: right forearm; lb 20:46 Follow up: Response: No adverse reaction; No change in condition lp 20:10 Drug: Magnesium Sulfate 2 grams; Route: IVPB; Infused Over: 30 hrs; Site: right forearm;lb 21:11 Follow up: IV Status: Completed infusion; IV Intake: 200ml lb 20:10 Drug: DuoNeb (Albuterol 2.5 mg, Atrovent 0.5 mg); 3 ml; Route: Nebulizer; lb 21:12 Follow up: Response: Wheezing diminished lb 20:21 Drug: Afrin Drops (0.05 %) 1 sprays; Route: Intranasal; Site: both nares; lp Intake: 21:11 IV: 200ml; Total: 200ml. lb Outcome: 21:11 Decision to Admit by Provider. be 21:44 Admitted to Med/surg accompanied by nurse, via stretcher, with oxygen. lb 21:44 Condition: unchanged 21:44 Report given to Justino DAVIS 21:44 Discharge Assessment: Patient awake, alert and oriented x 3. No cognitive and/or functional deficits noted. Patient verbalized understanding of disposition instructions. 21:44 Instructed on need to admit 21:45 Patient left the ED. lb Signatures: Annalisa Solares RN RN lp Chew, Scott, MD MD sc Elliott, Brian, MD MD be Averdick, Andrew, Mariola Hughes Jenifer Johnson lb
[2016-08-22] MEDS ORDERED: METHYLPREDNISOLONE SOD 125 MG/2 ML VIAL IV SCH (22:00)
[2016-08-22] MEDS: DOXYCYCLINE 100 MG CAPSULE PO SCH (22:33)
[2016-08-22] MEDS ORDERED: cloNIDine HCL 0.1 MG TABLET PO ONE ×2 (22:51→23:10)
[2016-08-22] MEDS ORDERED: NICOTINE 14 MG PATCH TRANSDERM ONE (23:11)
[2016-08-23] MEDS: traZODone HCL 50 MG TABLET PO SCH ×2 (02:36→20:49)
[2016-08-23] MEDS: METHYLPREDNISOLONE SOD 125 MG/2 ML VIAL IV SCH ×4 (02:39→20:47)
[2016-08-23 06:51] LABS: BASOPHIL# 0.1 X 10^3uL (0.0-0.1); BASOPHILS 0.9 % (0.0-2.0); EOSINOPHILS 0.1 % (0.0-6.0); HEMOGLOBIN 16.4 g/dL (12.0-16.0); LYMPHOCYTES 10.2 % (20.0-40.0); LYMPHOCYTES# 0.7 X 10^3uL (0.8-3.8); MEAN CELL VOLUME 95.1 fL (80.0-100.0); MEAN CORPUS. HGB CONCENTRATION 33.4 g/dL (32.0-36.0); MEAN CORPUSCULAR HEMOGLOBIN 31.7 pg (29.0-35.0); MEAN PLATELET VOLUME 9.1 fL (7.4-10.4); MONOCYTES 1.1 % (2.0-10.0); MONOCYTES# 0.1 X 10^3uL (0.2-1.0); NEUTROPHILS 87.7 % (54.0-75.0); NEUTROPHILS# 5.8 X 10^3uL (2.6-6.7); PLATELET COUNT 243 X 10^3uL (130-440); RED BLOOD COUNT 5.16 X 10^6uL (4.20-6.10); WHITE BLOOD COUNT 6.7 X 10^3uL (3.9-10.7)
[2016-08-23 07:04] LABS: ALBUMIN 4.2 g/dL (3.5-5.0); ALKALINE PHOSPHATASE 82 U/L (38-126); ALT 37 U/L (9-52); AST 14 U/L (14-36); BILIRUBIN, DIRECT 0.5 mg/dL (0.0-0.4); BILIRUBIN, TOTAL 0.6 mg/dL (0.2-1.3); BLOOD UREA NITROGEN 12 mg/dL (7-17); CALCIUM 9.6 mg/dL (8.4-10.2); CHLORIDE 106 mmol/L (98-107); EST GLOMERULAR FILTRATION RATE > 60 mL/min; GLUCOSE 150 mg/dL (70-100); POTASSIUM 4.4 mmol/L (3.5-5.1); SODIUM 143 mmol/L (137-145); TOTAL PROTEIN 7.7 g/dL (6.3-8.2)
--- NOTE | 2016-08-23 07:19 | RADIOLOGY REPORT ---
A limited single portable view of the chest is compared with prior examination dated 08/17/16. Considering differences in positioning, the heart and vessels are stable and unremarkable. The lung holland are clear. No infiltrate, fluid or pneumothorax is seen. IMPRESSION: No acute cardiopulmonary abnormality is identified. MTDD
[2016-08-23] MEDS: cloNIDine HCL 0.1 MG TABLET PO SCH ×2 (08:10→20:48)
[2016-08-23] MEDS: LISINOPRIL 20 MG TABLET PO SCH (08:11)
[2016-08-23] MEDS: DOXYCYCLINE 100 MG CAPSULE PO SCH ×2 (08:11→20:48)
[2016-08-23] MEDS ORDERED: NICOTINE 14 MG PATCH TRANSDERM SCH ×2 (09:00→22:50)
--- NOTE | 2016-08-23 09:15 | PROGRESS NOTE: IM APSO ---
Assessment and Plan - Date of Encounter Date of Encounter: 08/23/16 (1) Hypoxia Status: Acute Assessment and plan: Pt will continue present management of bronchitis with hypoxia, probably needs more time with steroids to succeed. Current Visit: Yes (2) Tobacco abuse counseling Status: Chronic Current Visit: Yes (3) Chronic pain Status: Chronic Current Visit: Yes - Time Spent With Patient Total time spent with greater than 50% in coordination of care (as documented) at patient's floor/unit and/or counseling patient: less than 15 minutes IM: PN Subjective General: fatigue Respiratory: cough, wheeze, SOB Gastrointestinal: no abdominal pain Musculoskeletal: pain (chronic) IM: PN Objective Exam - I&O/Vital Signs I&O: Intake & Output 08/22/16 08/23/16 08/23/16 21:59 05:59 13:59 Intake Total 578 Balance 578 Weight 72.575 kg Intake: IV 253 Right Forearm 253 Oral 325 Other: Voiding Method Self-Catheterization Vital Signs: Last Vital Signs Temp 36.3 C L 08/23/16 05:45 Pulse 70 08/23/16 05:45 Resp 26 H 08/23/16 05:45 BP 142/85 08/23/16 05:45 Pulse Ox 93 08/23/16 05:45 Oxygen Flow Rate 6 Oxygen Delivery Method Simple Mask - Constitutional General appearance: Present: cooperative - Eye Eye exam: Present: EOMI - ENT ENT exam: Present: mucous membranes moist - Respiratory Respiratory exam: Present: rales (R side kelsey, rhoncorous). Absent: accessory muscle use - Cardiovascular Cardiovascular exam: Present: RRR, systolic murmur - GI/Abdominal GI/Abdominal exam: Present: soft - Extremities Exam Extremities exam: Absent: edema - Neurological Exam Neurological exam: Present: oriented X3, other (just woke up, sleepy but approp) - Allied Health Notes Allied health notes reviewed: nursing - Lab Labs: Laboratory Last Values WBC 6.7 X 10^3uL (3.9-10.7) 08/23/16 06:30 RBC 5.16 X 10^6uL (4.20-6.10) 08/23/16 06:30 Hgb 16.4 g/dL (12.0-16.0) H 08/23/16 06:30 Hct 49.0 % (36.0-48.0) H 08/23/16 06:30 MCV 95.1 fL (80.0-100.0) 08/23/16 06:30 MCH 31.7 pg (29.0-35.0) 08/23/16 06:30 MCHC 33.4 g/dL (32.0-36.0) 08/23/16 06:30 RDW 14.0 % (11.5-14.5) 08/23/16 06:30 Plt Count 243 X 10^3uL (130-440) 08/23/16 06:30 MPV 9.1 fL (7.4-10.4) 08/23/16 06:30 Neutrophils % 87.7 % (54.0-75.0) H 08/23/16 06:30 Lymphocytes % 10.2 % (20.0-40.0) L 08/23/16 06:30 Eosinophils % 0.1 % (0.0-6.0) 08/23/16 06:30 Basophils % 0.9 % (0.0-2.0) 08/23/16 06:30 Neutrophils # 5.8 X 10^3uL (2.6-6.7) 08/23/16 06:30 Lymphocytes # 0.7 X 10^3uL (0.8-3.8) L 08/23/16 06:30 Monocytes 1.1 % (2.0-10.0) L 08/23/16 06:30 Monocytes # 0.1 X 10^3uL (0.2-1.0) L 08/23/16 06:30 Eosinophils # 0.0 X 10^3uL (0.0-0.4) 08/23/16 06:30 Basophils # 0.1 X 10^3uL (0.0-0.1) 08/23/16 06:30 Sodium 143 mmol/L (137-145) 08/23/16 06:30 Potassium 4.4 mmol/L (3.5-5.1) 08/23/16 06:30 Chloride 106 mmol/L (98-107) 08/23/16 06:30 Carbon Dioxide 24 mmol/L (22-30) 08/23/16 06:30 BUN 12 mg/dL (7-17) 08/23/16 06:30 Creatinine 0.7 mg/dL (0.5-1.0) 08/23/16 06:30 GFR Calculation > 60 mL/min 08/23/16 06:30 Glucose 150 mg/dL (70-100) H 08/23/16 06:30 Lactic Acid 0.7 mmol/L (0.7-2.1) 08/22/16 20:00 Calcium 9.6 mg/dL (8.4-10.2) 08/23/16 06:30 Total Bilirubin 0.6 mg/dL (0.2-1.3) 08/23/16 06:30 Direct Bilirubin 0.5 mg/dL (0.0-0.4) H 08/23/16 06:30 AST 14 U/L (14-36) 08/23/16 06:30 ALT 37 U/L (9-52) 08/23/16 06:30 Alkaline Phosphatase 82 U/L (38-126) 08/23/16 06:30 C-Reactive Protein 17.0 mg/L (<10.0) H 08/22/16 20:00 Total Protein 7.7 g/dL (6.3-8.2) 08/23/16 06:30 Albumin 4.2 g/dL (3.5-5.0) 08/23/16 06:30 Quality Questions - VTE Prophylaxis Assessment VTE Present on Admission?: No Patient at risk for venous thromboembolism?: Yes VTE Risk Level: Moderate Risk Pharmaceutical VTE prophylaxis contraindication reason: not indicated Mechanical VTE prophylaxis contraindication reason: N/A- VTE prophylaxsis ordered (3) Chronic pain Qualifiers: Chronic pain type: due to trauma Qualified Code(s): G89.21 - Chronic pain due to trauma
[2016-08-23 13:36] LABS: URINE MUCUS NONE SEEN (Up to 25%); URINE RBC NONE SEEN (0-5/hpf); URINE SQUAMOUS EPITHELIAL CELL NONE SEEN (<= 15/hpf); URINE WBC NONE SEEN (0-4/hpf)
[2016-08-23 13:47] LABS: URINE APPEARANCE CLEAR; URINE BACTERIA NONE SEEN (<10/hpf); URINE BILIRUBIN NEGATIVE (NEGATIVE); URINE BLOOD NEGATIVE (NEGATIVE); URINE COLOR YELLOW; URINE GLUCOSE NORMAL (NEGATIVE); URINE KETONE NEGATIVE (NEGATIVE); URINE LEUKOCYTE ESTERASE NEGATIVE (NEGATIVE); URINE NITRITE NEGATIVE (NEGATIVE); URINE PROTEIN NEGATIVE (NEG - TRACE); URINE UROBILINOGEN 0.2mg/dL (Normal) (NEG-1mg/dL)
[2016-08-23] MEDS: PREGABALIN 50 MG CAPSULE PO SCH ×2 (14:24→20:48)
[2016-08-23] MEDS ORDERED: IBUPROFEN 600 MG TABLET PO PRN (15:26)
[2016-08-23] MEDS ORDERED: IBUPROFEN 400 MG TABLET PO PRN (15:33)
[2016-08-23] MEDS: NICOTINE 14 MG PATCH TRANSDERM SCH (17:11)
[2016-08-23] MEDS ORDERED: FENTANYL 25 MCG TRANSDERM SCH (18:00)
[2016-08-24] MEDS: METHYLPREDNISOLONE SOD 125 MG/2 ML VIAL IV SCH ×2 (02:50→08:17)
[2016-08-24 06:06] VITALS: PULSE 53; TEMP 97.5
[2016-08-24 06:36] VITALS: BP 146/73; RESP 16
[2016-08-24] MEDS: DOXYCYCLINE 100 MG CAPSULE PO SCH (08:18)
[2016-08-24] MEDS: PREGABALIN 50 MG CAPSULE PO SCH (08:18)
[2016-08-24] MEDS: NICOTINE 14 MG PATCH TRANSDERM SCH (08:19)
[2016-08-24] MEDS: cloNIDine HCL 0.1 MG TABLET PO SCH (08:19)
[2016-08-24] MEDS: LISINOPRIL 20 MG TABLET PO SCH (08:19)
--- NOTE | 2016-08-24 09:16 | DC SUMMARY: IM Note ---
Discharge Summary: IM/Peds Provider: Date of Admission: 08/22/16 Admitting Provider: ALICE MCLAUGHLIN MD Attending Provider: ALICE MCLAUGHLIN MD Discharging Provider: ALICE MCLAUGHLIN MD Primary Care Provider: Discharge Date: 08/24/16 - Diagnosis (1) Hypoxia Status: Acute (2) Tobacco abuse counseling Status: Chronic (3) Chronic pain Status: Chronic Qualifiers: Chronic pain type: due to trauma Qualified Code(s): G89.21 - Chronic pain due to trauma Hospital Course: Pt was admitted with no resp'y distress but very significant O2 requ 5-6 liters. Hx of intubation 06/27 other facility, so monitored closely for resp'y failure, no concerns identified. CXR normal, doxycycline and IV solumedrol resulted in great improvement over 48 hrs, pt with minimal O2 requirement and would like to go home. Appears vastly improved this AM. Some concern raised by nursing staff she may have undiagnosed CEDRICK with severe desats, but that was when ill. Will mention to PCP at [facility] that a sleep study or screening nocturnal POx may be in order when she is well. No severe desats noted night prior to d/c. Tobacco cessation reviewed again; critical for this young ill patient. Pain management per Dr Esqueda, will continue present program. Sade Frye, please note the above comment about possible sleep apnea, thx! Time spent discussing smoking cessation with patient: 3 to 10 minutes - Time Spent with Patient Total time spent providing and/or coordinating discharge services: Time with patient DS: Less than 30 minutes Discharge Follow up: MATTHEW FRYE [Primary Care Provider] - 08/31/16 2:00 pm Disposition: HOME, SELF-CARE Discharge Summary Data - Medication History Medication History: Home Medications oxyCODONE HCL IR [Oxy Ir*] 10 mg PO Q4H PRN 02/26/15 Clopidogrel Bisulfate [Plavix*] 75 mg PO DAILY 08/23/16 Fentanyl [DURAGESIC 25mcg/HR*] 25 mcg TRANSDERM Q72H 08/23/16 Ibuprofen 800 mg PO TID PRN 08/23/16 Lisinopril [Prinivil*] 20 mg PO HS 08/23/16 Loperamide HCl [Imodium Ad*] 2 mg PO PRN PRN 08/23/16 Pregabalin [Lyrica*] 150 mg PO TID 08/23/16 cloNIDine HCL [Clonidine HCl] 0.2 mg PO HS 08/23/16 traZODone HCL [Trazodone HCl*] 100 mg PO HS 08/23/16 Inpatient Medications 08/23/16 00:23 traZODone HCL [Desyrel] 100 mg PO BEDTIME (DAILY) 08/23/16 02:00 Methylprednisolone Sod [Solu-Medrol] 60 mg IV Q6H 08/23/16 09:00 Nicotine [Nicoderm Patch] 14 mg TRANSDERM DAILY 08/23/16 11:54 oxyCODONE HCL IR [Oxy Ir] 10 mg PO Q6H PRN 08/23/16 15:00 Pregabalin [Lyrica] 150 mg PO TID 08/23/16 15:33 Ibuprofen [Motrin] 800 mg PO Q8H PRN 08/23/16 18:00 Fentanyl [DURAGESIC 25mcg/HR] 25 mcg TRANSDERM Q72H Procedures and tests throughout hospitalization: Pending Orders 08/23/16 00:23 traZODone HCL [Desyrel] 100 mg PO BEDTIME (DAILY) 08/23/16 02:00 Methylprednisolone Sod [Solu-Medrol] 60 mg IV Q6H 08/23/16 09:00 Nicotine [Nicoderm Patch] 14 mg TRANSDERM DAILY 08/23/16 11:54 oxyCODONE HCL IR [Oxy Ir] 10 mg PO Q6H PRN 08/23/16 15:00 Pregabalin [Lyrica] 150 mg PO TID 08/23/16 15:33 Ibuprofen [Motrin] 800 mg PO Q8H PRN 08/23/16 18:00 Fentanyl [DURAGESIC 25mcg/HR] 25 mcg TRANSDERM Q72H Labs on day of discharge: Labs from last 24 hours 08/23/16 05:00 Urine Color Yellow Urine Appearance Clear Urine pH 7.0 Ur Specific [place] 1.020 Urine Protein Negative Urine Ketones Negative Urine Blood Negative Urine Nitrate Negative Urine Bilirubin Negative Urine Urobilinogen 0.2mg/dl (normal) Ur Leukocyte Esterase Negative Urine RBC None seen Urine WBC None seen Ur Squamous Epith Cells None seen Urine Bacteria None seen Urine Mucus None seen Urine Glucose Normal IM: Discharge Physical Exam - I&O/Vital Signs I&O: Intake & Output 08/23/16 08/24/16 08/24/16 21:59 05:59 13:59 Intake Total 2230 213 500 Output Total 1350 650 Balance 880 -437 500 Weight 72.5 kg Intake: IV 150 500 Right Forearm 150 500 Oral 2080 213 Output: Urine 1350 650 Other: Urine Appearance Clear Urine Color Yellow Voiding Method Toilet Toilet # Voids 1 2 Vital Signs: Last Vital Signs Temp 36.4 C L 08/24/16 06:05 Pulse 53 L 08/24/16 06:05 Resp 16 08/24/16 06:05 BP 146/73 08/24/16 06:05 Pulse Ox 86 L 08/24/16 08:00 Oxygen Flow Rate 3 Oxygen Delivery Method Room Air - Constitutional General appearance: Present: cooperative - Eye Eye exam: Present: EOMI - ENT ENT exam: Present: mucous membranes moist - Respiratory Respiratory exam: Present: decreased breath sounds, clear. Absent: accessory muscle use, prolonged expiratory phase, rales, respiratory distress, wheezes - Cardiovascular Cardiovascular exam: Present: RRR, systolic murmur - GI/Abdominal GI/Abdominal exam: Present: soft - Extremities Exam Extremities exam: Absent: edema - Neurological Exam Neurological exam: Present: oriented X3, other (just woke up, sleepy but approp) - Allied Health Notes Allied health notes reviewed: nursing
[2016-08-24 09:20] VITALS: O2SAT 93
== END 2016-08-24 10:10 | disposition home or self-care (01) | DRG 206 ==
LOC: ER 18:21 → IN 21:41
PROVIDERS: ADMIT Family Medicine; ATTEND Family Medicine
DX: R09.02 Hypoxemia (principal); G90.59 Complex regional pain syndrome I of other specified site; Z72.0 Tobacco use; E78.5 Hyperlipidemia, unspecified; G47.00 Insomnia, unspecified; G89.4 Chronic pain syndrome; Z79.52 Long term (current) use of systemic steroids; Z79.899 Other long term (current) drug therapy
CPT/HCPCS: 36415; 71010; 80048; 80076; 81001; 83605; 85025; 86140; 87040; 94640; 96365; 96375; 99285; J2930; J3475; J7030; J7620; S4990